=== PATIENT | male | born 1960 | race Caucasian/White ===

== ENCOUNTER 2020-07-12 09:25 | Outpatient (RCR) | payer OTHER, SELFPAY ==
[2020-07-12 09:43] VITALS: BMI 47.9
[2020-07-12 09:46] VITALS: BMI 47.9
== END 2020-09-26 15:19 | disposition home or self-care (01) ==
LOC: ANHDMC 09:25
PROVIDERS: PCP Internal Medicine; Visit Provider Internal Medicine
DX: E11.9 Type 2 diabetes mellitus without complications (principal); Z71.3 Dietary counseling and surveillance
CPT/HCPCS: 97802

== ENCOUNTER 2020-07-18 07:59 | Outpatient (CLI) | payer OTHER, SELFPAY | END 2020-07-18 08:00 | disposition home or self-care (01) | LOC: ANHCOVIDVC 07:59 | PROVIDERS: PCP Internal Medicine | DX: Z23 Encounter for immunization (principal) | CPT/HCPCS: 0001A; 91300 ==

== ENCOUNTER 2020-08-08 08:02 | Outpatient (CLI) | payer OTHER, SELFPAY | END 2020-08-08 08:03 | disposition home or self-care (01) | LOC: ANHCOVIDVC 08:02 | PROVIDERS: PCP Internal Medicine | DX: Z23 Encounter for immunization (principal) | CPT/HCPCS: 0002A; 91300 ==

== ENCOUNTER 2021-09-20 10:03 | Outpatient (CLI) | payer OTHER, SELFPAY ==
--- NOTE | ~2021-09-20 | CT_ITS ---
EXAMINATION: CT abdomen pelvis wo/w con DATE: 09/20/2021 10:59 INDICATION: Hematuria TECHNIQUE: Computed tomography (CT) of the abdomen and pelvis was performed without and subsequently with 130 CC Omnipaque 300 intravenous contrast. Automated exposure control and iterative reconstructi on technique were employed. Exam dose: 3092.28 mGy-cm total exam DLP. COMPARISON: None. FINDINGS: There is mild discoid atelectasis or scarring at the lung bases. No pericardial or pleural effusion. 12 mm probable cyst at the lateral segment of the left hepatic lobe. The liver is otherwise unremarka ble. The gallbladder is present. No bile duct or pancreatic duct dilatation. Normal splenic size. There are prominent calcifications of the head of the pancreas and small pancreatic tail calcificatio n. 6.5 x 8.7 mm left renal pelvic calculus or calculi. Mild left hydronephrosis. No other urinary tract calculus is noted. No right hydronephrosis. The urinary bladder is unremarkable. Minimal prostate calcification. No significant prostate enlargem ent is noted. There is mild atherosclerotic calcification of the abdominal aorta. No abdominal aortic aneurysm. No intraperitoneal or retroperitoneal or pelvic mass lesion or adenopathy or ascites. Diverticulosis of left and right colon; no CT evidence of diverticulitis. The appendix is not localiz ed; no inflammatory changes noted in the right lower quadrant. No bowel obstruction, bowel wall thick ening, pneumatosis or intraperitoneal free air is detected. Small fat-containing umbilical hernia. There is mild compression fracture deformity of L1 with prominent depression of the superior vertebra l endplate There is mild anterior wedge compression fracture deformity at T8. IMPRESSION: 6.5-8.7 mm left renal pelvic calculus or calculi with mild left hydronephrosis 12 mm left hepatic probable cyst Chronic pancreatitis Diverticulosis of left and right colon; no evidence of diverticulitis Mild compression fracture deformity of T8 and L1 Reviewed, dictated and finalized at [facility]. Reviewed, dictated and finalized at location B. IMPRESSION: 6.5-8.7 mm left renal pelvic calculus or calculi with mild left hy dronephrosis 12 mm left hepatic probable cyst Chronic pancreatitis Diverticulosis of left and right colon; no evidence of diverticulitis Mild compression fracture deformity of T8 and L1
[2021-09-20 10:46] LABS: Estimated Glomerular Filt Rate > 60
[2021-09-20 11:32] LABS: Basophils Percent Auto 0.5 % (0.2-1.2); Eosinophils Absolute Auto 0.2 K/mm3 (0-0.3); Hematocrit 43.4 % (42.0-52.0); Immature Granulocyte Absolute 0.08 K/mm3 (0.00-0.031); Lymphocytes Percent Auto 26.8 % (18.3-44.2); Mean Corpuscular HGB Conc 32.3 g/dl (32-36); Mean Corpuscular Hemoglobin 30.4 pg (26-34); Mean Corpuscular Volume 94.3 fl (80-100); Monocytes Absolute Auto 0.5 K/mm3 (0.1-0.6); Neutrophils Percent Auto 63.7 % (45.5-73.1); Platelet Count Result 235 k/mm3 (150-375); Red Cell Distribution Width 12.3 % (11.5-14.5); White Blood Count 7.8 K/mm3 (4.5-10.0)
[2021-09-20 11:46] LABS: Add Urine Microscopic? YES; Appearance Urine Other (Clear); Bilirubin Urine 1+ (Negative); Blood Urine 3+ (Negative); Color Urine Red (Yellow); Glucose Urine UA Negative (Negative); Ketones Urine Trace mg/dL (Negative); Leukocyte Esterase Ur Negative LEU/UL (Negative); Nitrate Urine Negative (Negative); Protein Urine 3+ mg/dL (Negative); Specific Grav Ur 1.025 (1.001-1.035); Urobilinogen Urine 0.2 mg/dL (<2.0); pH Urine 5.5 (5.0-9.0)
[2021-09-20 11:49] LABS: Mucus Urine Few /lpf; RBC Urine >75 /hpf (0-2); WBC Urine 0-3 /hpf
[2021-09-20 11:59] LABS: Alanine Aminotransferase 36 U/L (6-50); Albumin Level 4.5 g/dL (3.5-5.1); Alkaline Phosphatase 67 U/L (38-126); Anion Gap 8 mmol/L (8-16); Aspartate Amino Transferase 32 U/L (17-59); Bilirubin,Total 0.7 mg/dL (0.2-1.3); Blood Urea Nitrogen 12 mg/dL (9-20); Calcium 10.3 mg/dL (8.4-10.2); Carbon Dioxide 26 mmol/L (22-30); Chloride 103 mmol/L (98-107); Estimated Glomerular Filt Rate > 60; Glucose 125 mg/dL (65-110); Potassium 4.6 mmol/L (3.4-5.0); Sodium 137 mmol/L (137-145)
[2021-09-20 12:30] LABS: Prostate Specific Antigen 1.5 ng/mL (< OR = 4.0)
== END 2021-09-20 10:04 | disposition home or self-care (01) ==
PROVIDERS: PCP Internal Medicine; Visit Provider Clinical Nurse Specialist
DX: R31.9 Hematuria, unspecified (principal); Z12.5 Encounter for screening for malignant neoplasm of prostate; N20.0 Calculus of kidney; K76.89 Other specified diseases of liver; K86.1 Other chronic pancreatitis; K57.90 Diverticulosis of intestine, part unspecified, without perforation or abscess without bleeding; M48.54XA Collapsed vertebra, not elsewhere classified, thoracic region, initial encounter for fracture
CPT/HCPCS: 74178; 80053; 81001; 84153; 85025; G0103; Q9967

== ENCOUNTER 2021-09-21 07:58 | Outpatient (CLI) | payer OTHER, SELFPAY ==
--- NOTE | ~2021-09-21 | XR_ITS ---
EXAMINATION: XR abdomen/kub 1V INDICATION: Calcium kidney stone TECHNIQUE: Supine views of the abdomen were obtained on 2 radiographs. COMPARISON: CT from yesterday FINDINGS: A 7 mm stone projects in the expected location of the left ureteropelvic junction between t he left L1 and L2 transverse processes. No additional urolithiasis is identified. There are phlebolit hs of the right pelvis. Moderate osteoarthritis is noted in the hips the bowel gas pattern is normal. Calcifications of the right mid abdomen projects in the pancreas on the comparison CT, consistent wi th chronic pancreatitis. IMPRESSION: 1. 7 mm stone projecting in the expected location of the left ureteropelvic junction. Reviewed, dictated and finalized at location A. IMPRESSION: 1. 7 mm stone projecting in the expected location of the left ureteropelvic okki ction.
== END 2021-09-21 07:59 | disposition home or self-care (01) ==
PROVIDERS: PCP Internal Medicine; Visit Provider Urology
DX: N20.0 Calculus of kidney (principal); M16.0 Bilateral primary osteoarthritis of hip
CPT/HCPCS: 74018

== ENCOUNTER 2021-09-23 13:30 | Observation (INO) | payer OTHER, SELFPAY ==
[2021-09-23] VITALS (7 sets, daily range): BP systolic 120–150; BP diastolic 73–98; PULSE 71–94; RESP 2–20; TEMP 36.3–36.4; O2SAT 95–99; BMI 45.8
--- NOTE | ~2021-09-23 | CT_ITS ---
EXAMINATION: CT abdomen pelvis wo con DATE: 09/23/2021 14:43 INDICATION: left flank pain TECHNIQUE: Computed tomography (CT) of the abdomen and pelvis was performed without intravenous contr ast. Automated exposure control and iterative reconstruction technique were employed. The dose-length product was 1526.38 mGy-cm. COMPARISON: 09/20/2021 FINDINGS: Lower thorax: Bibasilar atelectasis/scar. Mild coronary artery calcification. Liver: Stable probable left liver lobe cyst. Biliary/Gallbladder: Gallbladder is normal. No bile duct dilation. Pancreas: No mass or duct dilation. Calcifications as can be seen with chronic pancreatitis. Spleen: Normal. Adrenals:No mass. Kidneys: Moderate left perinephric stranding and pelvic caliectasis. 5 x 12 mm left UPJ stone (unchan ged the prior, differences in measurement reflect different selected measurement planes). GI tract: Diverticulosis without diverticulitis. No bowel dilation. Normal appendix. Mesentery/Peritoneum: No ascites, mass, or free air. Retroperitoneum: No mass. Mild abdominal aortic atherosclerosis. Pelvis: Prostatomegaly, otherwise the pelvic organs are within normal limits. Soft Tissues: Soft tissues and body wall unremarkable. Bones: No acute osseous finding. IMPRESSION: 5 x 12 mm left UPJ stone causing moderate obstructive uropathy, overall the obstruction/inflammation have worsened since the prior study. Reviewed, dictated and finalized at location K. IMPRESSION: 5 x 12 mm left UPJ stone causing moderate obstructive uropathy, overall the obs truction/inflammation have worsened since the prior study.
--- NOTE | ~2021-09-23 | XR_ITS ---
EXAMINATION: XR retrograde pyelo w/stent LT DATE: 09/24/2021 10:00 CDT INDICATION: LT SIDE SPECIAL . TECHNIQUE: Five fluoroscopic spot and 77 cine images of the pelvis and left upper quadrant were obtai jan during this procedure. Fluoroscopy exposure time was 34.3 seconds. Cumulative dose 1.28 mGm2. COMPARISON: CT abdomen/pelvis 09/23/21. FINDINGS: Spot views document normal bowel gas pattern. Extra ureteral right pelvic calcification. The left UPJ stone seen in the prior study is not well visualized and may have been removed or passed in the inte rval. Cine images demonstrate filling of the proximal collecting system which is mildly to moderately dilated, perhaps slightly less so than the prior CT. IMPRESSION: Fluoroscopic documentation of retrograde pyelography. Reviewed, dictated and finalized at location K.
--- NOTE | 2021-09-23 13:50 | ED.MALEGU ---
HPI - Male Genitourinary General Chief complaint: Urogenital-Male Stated complaint: known kidney stone, pain Time Seen by Provider: 09/23/21 13:45 History of Present Illness HPI Narrative: pt started last week hematuria then outpt last left flank pain saw his doc ct adn stone sent to dr méndez and xray and plan for stent this coming . and blood in urine is gone but then more nausea pain no d/f/neuor changes but taking norco and not helping Related Data Home Medications Medication Instructions Recorded Confirmed atorvastatin 40 mg tablet 40 mg PO DAILY 11/18/19 09/22/21 metoprolol succinate 50 mg 50 mg PO QAM tablet 11/18/19 09/22/21 tablet,extended release 24 hr propafenone 325 mg 325 mg PO Q12H 11/18/19 09/22/21 capsule,extended release 12 hr rivaroxaban 20 mg tablet 20 mg PO QPM 11/18/19 09/22/21 cholecalciferol (vitamin D3) 50 2,000 unit PO DAILY cap 04/19/20 09/22/21 mcg (2,000 unit) capsule acetaminophen [Tylenol Extra 1,500 mg PO Q6H PRN 09/22/21 09/22/21 Strength] Allergies Allergy/AdvReac Type Severity Reaction Status Date / Time No Known Allergies Allergy Unknown Verified 09/23/21 14:15 Review of Systems Review of Systems: CONSTITUTIONAL: Denies fever, chills, or sweats. EYES: Denies visual changes, redness, or discharge. ENT: Denies rhinorrhea, congestion, sore throat, or otalgia. CARDIOVASCULAR: Denies chest pain, palpitations, or edema. RESPIRATORY: Denies cough or dyspnea. GASTROINTESTINAL: Denies abdominal pain, nausea, vomiting, or diarrhea. GENITOURINARY: Denies dysuria or has hematuria and left flank pain. SKIN: Denies rash or itching. MUSCULOSKELETAL: Denies back pain, joint pain, or myalgia. NEUROLOGIC: Denies headache, numbness, or weakness. PSYCHIATRIC: Denies anxiety or depression. [facility] Past Medical History Medical History Atrial fibrillation Continuous tobacco abuse Essential hypertension Eustachian tube dysfunction FHH (familial hypocalciuric hypercalcemia) History of cardioversion 2009, 2010, 2012 Hypercholesterolemia Hyperglycemia Hypertension Morbid obesity due to excess calories Vitamin D deficiency Family History Family History Sibling Diabetes mellitus Patient's brother is in good health Mother Hypertension Family history of atrial fibrillation Father Malignant neoplasm of prostate Social History Social History Smoking packs per day: 1 Smoking cigarettes per day: 20.0 Years smoked: 35 Smoking pack-years: 35.00 Smoking status: Current every day smoker Tobacco type: cigarettes Smoking end date: 05/13/10 Additional smoking assessment comments: CURRENTLY SMOKING 1/2 PACK/DAY Alcohol intake: current Alcohol use details: whiskey once a month or so Substance use: never Substance use type: marijuana and hallucinogens Last use: 15 years ago Additional living arrangements comments: 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 Head normocephalic atraumtaic. EYES: PERRLA/EOMI, conjunctivae very clear. NOSE: Normal no drainage EARS:TMS clear Sam Jerez, with good light reflex. THROAT: Pharynx clear, no exudate. NECK: Supple. No adenopathy, no masses. RESPIRATORY: Airway patent, repsirations nonlabored. Clear to auscultation bilaterally, no rales, rhonchi, wheezing. CARDIOVASCULAR: Regular rate and rhythm without murmurs rubs or gallops. ABDOMINAL: Soft, nontender, nondistended, no hepatosplenomegally has left cva tenderness MUSCULOSKELETAl: Moves all extremities. Strenght/ROM intact, No edema, No calf tenderness. NEURO: Alert. Cranial nerves II through XII intact. Good gait. Good coordination SKIN:: Warm, dry. Nor
[2021-09-23] MEDS: SODIUM CHLORIDE 0.9% IV 1,000 ML 999 ML IV CONT (14:22)
[2021-09-23] MEDS: ONDANSETRON INJ 4 MG/2 ML VIAL IV PUSH (14:26)
[2021-09-23] MEDS: KETOROLAC 30 MG/ML VIAL (*BKC) IV PUSH (14:28)
[2021-09-23 14:30] LABS: Basophils Percent Auto 0.2 % (0.2-1.2); Eosinophils Percent Auto 0.2 % (0-4.4); Hematocrit 41.7 % (42.0-52.0); Hemoglobin 13.4 g/dL (14.0-18.0); Immature Granulocyte Percent A 0.8 % (0-0.5); Lymphocytes Absolute Auto 1.31 K/mm3 (0.9-3.2); Lymphocytes Percent Auto 10.7 % (18.3-44.2); Mean Corpuscular HGB Conc 32.1 g/dl (32-36); Mean Corpuscular Volume 93.5 fl (80-100); Mean Platelet Volume 10.9 fl (7.4-10.4); Monocytes Percent Auto 7.8 % (2.6-8.5); Neutrophils Absolute Auto 9.8 K/mm3 (1.3-6.7); Neutrophils Percent Auto 80.3 % (45.5-73.1); Platelet Count Result 248 k/mm3 (150-375); Red Blood Count 4.46 M/mm3 (4.6-6.20); Red Cell Distribution Width 12.4 % (11.5-14.5); White Blood Count 12.2 K/mm3 (4.5-10.0)
[2021-09-23] MEDS: fentaNYL CITRATE INJ (*CRX) 100 MCG/2 ML VIAL IV PUSH (14:30)
[2021-09-23 14:39] LABS: Alanine Aminotransferase 26 U/L (6-50); Albumin Level 4.8 g/dL (3.5-5.1); Alkaline Phosphatase 72 U/L (38-126); Anion Gap 10 mmol/L (8-16); Aspartate Amino Transferase 24 U/L (17-59); Blood Urea Nitrogen 19 mg/dL (9-20); Calcium 10.4 mg/dL (8.4-10.2); Carbon Dioxide 21 mmol/L (22-30); Chloride 104 mmol/L (98-107); Estimated CRCL calculation 102 ml/min; Estimated Glomerular Filt Rate > 60; Glucose 149 mg/dL (65-110); Potassium 4.3 mmol/L (3.4-5.0); Sodium 135 mmol/L (137-145)
[2021-09-23 16:04] LABS: Add Urine Microscopic? YES; Appearance Urine Cloudy (Clear); Bilirubin Urine 1+ (Negative); Blood Urine 1+ (Negative); Color Urine Yellow (Yellow); Glucose Urine UA Negative (Negative); Ketones Urine 1+ mg/dL (Negative); Leukocyte Esterase Ur Negative LEU/UL (Negative); Nitrate Urine Negative (Negative); Protein Urine 1+ mg/dL (Negative); Specific Grav Ur >= 1.030 (1.001-1.035); Urobilinogen Urine 0.2 mg/dL (<2.0); pH Urine 5.5 (5.0-9.0)
[2021-09-23 16:21] LABS: Mucus Urine Rare /lpf
[2021-09-23 17:20] LABS: Glucose Point of Care 136 mg/dl (65-105)
--- NOTE | 2021-09-23 18:15 | PM.IMHP ---
H&P: HPI History of Present Illness Date/Time: 09/23/21 18:15 Chief Complaint: Left flank pain. Narrative: This is a pleasant 61-year-old male with persistent atrial fibrillation on chronic anticoagulation, prediabetes, obstructive sleep apnea, hyperlipidemia, and hypertension who presented to the emergency department for evaluation of worsening left flank pain. A CT of the abdomen and pelvis done earlier in the week for evaluation of hematuria revealed an 8.7 x 6.5 mm stone in the left renal pelvis with mild left hydronephrosis. He was referred to Urology and is scheduled for cystoscopy with stent placement this coming Saturday. Unfortunately he has since developed left back and flank pain which has been pretty consistent over the past 24 hours. Last night the pain was so severe that he was nauseated and he had several episodes of emesis associated with sweats. He was afebrile on arrival to the emergency department with stable vital signs. CT of the abdomen and pelvis showed a 5 x 12 mm left UPJ stone causing moderate obstructive uropathy and he is being admitted in this setting. Currently he is much more comfortable after receiving fentanyl and ketorolac in the emergency department. He denies fever, dysuria, and hematuria. Review of Systems Review of Systems: Twelve systems were reviewed. This is 1st kidney stone. Familial hypercalciuric hypercalcemia documented in his medical history however he has no knowledge of this. No cold or flu symptoms. He denies chest pain and shortness of breath. No diarrhea. He is prediabetic but does not check his glucose at home. He is compliant with his CPAP. Except as documented, all other systems were reviewed and are negative. [facility] Past Medical History Medical History (Updated 09/23/21 @ 20:47 by Kimmy Rothman PA-C) Chronic anticoagulation Continuous tobacco abuse Essential hypertension Gastroesophageal reflux disease Hypercholesterolemia Hypertension Morbid obesity due to excess calories Obstructive sleep apnea on CPAP Obstructive uropathy Paroxysmal atrial fibrillation Status post cardioversion x3. Type 2 diabetes mellitus Vitamin D deficiency Surgical History Surgical History History of appendectomy History of cardioversion 2009, 2010, 2011 History of vasectomy Family History Family History Sibling Diabetes mellitus Patient's brother is in good health Mother Hypertension Family history of atrial fibrillation Father Malignant neoplasm of prostate Social History Social History (Updated 09/23/21 @ 20:48 by Kimmy Rothman PA-C) Social History: Surrogate decision maker: Nicole Maria, spouse. Code status: Full code. Smoking packs per day: 1 Smoking cigarettes per day: 20.0 Years smoked: 35 Smoking pack-years: 35.00 Smoking status: Current every day smoker Tobacco type: cigarettes Second hand tobacco smoke exposure: No Additional smoking assessment comments: Quit smoking for 10 years, now smoking 0.5 packs a day for the past 1 year Alcohol intake: current Alcohol use details: Consumes perhaps 2 to 3 alcoholic beverages a week. 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
--- NOTE | 2021-09-23 19:47 | WPDANESEPP ---
Anes - Eval Pre Procedure Procedure: left cysto with stent exchange Date/Time: 09/23/21 19:47 Surgeon: bernard Pre Op Diagnosis: Obstructing kidney stone left side Patient Data Age: 61 Gender: M Height: 1.8 m Weight: 149 kg Last Vital Signs Temp 97.3 F L 09/23/21 17:41 Pulse 81 09/23/21 17:41 Resp 2 L 09/23/21 17:41 BP 138/76 09/23/21 17:41 Pulse Ox 97 09/23/21 17:41 Allergies Allergy/AdvReac Type Severity Reaction Status Date / Time No Known Allergies Allergy Unknown Verified 09/23/21 14:15 Home Medications Medication Instructions Recorded Confirmed Type atorvastatin 40 mg tablet 40 mg PO DAILY 11/18/19 09/23/21 History metoprolol succinate 50 mg 50 mg PO QAM tablet 11/18/19 09/23/21 History tablet,extended release 24 hr propafenone 325 mg 325 mg PO Q12H 11/18/19 09/23/21 History capsule,extended release 12 hr rivaroxaban 20 mg tablet 20 mg PO QPM 11/18/19 09/23/21 History cholecalciferol (vitamin D3) 50 2,000 unit PO DAILY cap 04/19/20 09/23/21 History mcg (2,000 unit) capsule metformin 1,000 mg tablet 1,000 mg PO BID #180 tablet 04/25/21 09/23/21 Rx acetaminophen [Tylenol Extra 1,500 mg PO DAILY PRN 09/22/21 09/23/21 History Strength] Laboratory Tests 09/23/21 09/23/21 09/23/21 13:54 13:54 13:54 WBC 12.2 K/mm3 H K/mm3 (4.5-10.0) RBC 4.46 M/mm3 L M/mm3 (4.6-6.20) Hgb 13.4 g/dL L g/dL (14.0-18.0) Hct 41.7 % L % (42.0-52.0) MCV 93.5 fl fl (80-100) MCH 30.0 pg pg (26-34) MCHC 32.1 g/dl g/dl (32-36) RDW 12.4 % % (11.5-14.5) Plt Count 248 k/mm3 k/mm3 (150-375) MPV 10.9 fl H fl (7.4-10.4) Immature Gran % (Auto) 0.8 % H % (0-0.5) Neut % (Auto) 80.3 % H % (45.5-73.1) Lymph % (Auto) 10.7 % L % (18.3-44.2) [place] % (Auto) 7.8 % % (2.6-8.5) Eos % (Auto) 0.2 % % (0-4.4) Baso % (Auto) 0.2 % % (0.2-1.2) Lymph # (Auto) 1.31 K/mm3 K/mm3 (0.9-3.2) [place] # (Auto) 1.0 K/mm3 H K/mm3 (0.1-0.6) Eos # (Auto) 0.0 K/mm3 K/mm3 (0-0.3) Baso # (Auto) 0.0 K/mm3 K/mm3 (0.0-0.1) Abs Immat Gran (auto) 0.10 K/mm3 H K/mm3 (0.00-0.031) Absolute Neuts (auto) 9.8 K/mm3 H K/mm3 (1.3-6.7) Absolute Nucleated RBC 0.0 K/mm3 K/mm3 (0.0-0.012) Nucleated RBC % 0.0 % % (0.0-0.2) Sodium 135 mmol/L L mmol/L (137-145) Potassium 4.3 mmol/L mmol/L (3.4-5.0) Chloride 104 mmol/L mmol/L (98-107) Carbon Dioxide 21 mmol/L L mmol/L (22-30) Anion Gap 10 mmol/L mmol/L (8-16) BUN 19 mg/dL mg/dL (9-20) Creatinine 1.00 mg/dL mg/dL (0.7-1.3) Estim Creat Clear Calc 102 ml/min ml/min Estimated GFR > 60 (59 - ) Glucose 149 mg/dL H mg/dL (65-110) POC Capillary Glucose Calcium 10.4 mg/dL H mg/dL (8.4-10.2) Total Bilirubin 1.0 mg/dL mg/dL (0.2-1.3) AST 24 U/L U/L (17-59) ALT 26 U/L U/L (6-50) Alkaline Phosphatase 72 U/L U/L (38-126) Total Protein 8.0 g/dL g/dL (6.3-8.2) Albumin 4.8 g/dL g/dL (3.5-5.1) Urine Color Yellow (Yellow) Urine Appearance Cloudy H (Clear) Urine pH 5.5 (5.0-9.0) Ur Specific [place] >= 1.030 (1.001-1.035) Urine Protein 1+ mg/dL H mg/dL (Negative) Urine Glucose (UA) Negative mg/dL mg/dL (Negative) Urine Ketones 1+ mg/dL H mg/dL (Negative) Ur Blood (Man) 1+ H (Negative) Urine Nitrate Negative (Negative) Urine Bilirubin 1+ H (Negative) Urine Urobilinogen 0.2 mg/dL mg/dL (<2.0) Leukocyte Esterase Rfl Negative AKBAR/UL AKBAR/UL (Negative) Urine RBC 3-5 /hpf H /hpf (0-2) Uri
--- NOTE | 2021-09-23 19:51 | ECG_ITS ---
Measurements Intervals [place] Rate: 67 P: DE: 0 QRS: 10 QRSD: 100 T: 22 QT: 343 QTc: 365 Interpretive Statements ATRIAL FIBRILLATION LOW QRS VOLTAGE IN PRECORDIAL LEADS MINIMAL Q WAVES- INFERIOR LEADS BORDERLINE T WAVE ABNORMALITY- INFERIOR LEADS BASELINE ARTIFACT- I, II, III, AVR, AVL, AVF ABNORMAL ECG Electronically Signed On 09-23-2021 20:43:28 CDT by Paul Bishop D.O.
[2021-09-23] MEDS: HYDROcodone/acetaminophen (*CRX) 5-325 MG TABLET 1 TAB PO (21:42)
[2021-09-23 21:45] LABS: Glucose Point of Care 132 mg/dl (65-105)
[2021-09-24] VITALS (13 sets, daily range): BP systolic 118–137; BP diastolic 73–89; PULSE 80–96; RESP 13–26; TEMP 36.2–36.8; O2SAT 92–98
[2021-09-24] MEDS: MORPHINE SULFATE (*CRX) 2 MG/ML INJ IV PUSH ×2 (02:30→12:08)
--- NOTE | 2021-09-24 04:03 | PHAR ---
PHARMACY VERIFIED HOME MED: *USE FROM HOME* PROPAFENONE HCL SR 325 MG CAPSULE TAKE 1 CAPSULE BY MOUTH ONCE DAILY IF HEART RATE < 50 HOLD AND NOTIFY PHYSICIAN
[2021-09-24 07:08] LABS: Hematocrit 38.7 % (42.0-52.0); Hemoglobin 12.6 g/dL (14.0-18.0); Mean Corpuscular HGB Conc 32.6 g/dl (32-36); Mean Corpuscular Hemoglobin 30.5 pg (26-34); Mean Corpuscular Volume 93.7 fl (80-100); Mean Platelet Volume 11.4 fl (7.4-10.4); Platelet Count Result 216 k/mm3 (150-375); Red Blood Count 4.13 M/mm3 (4.6-6.20); Red Cell Distribution Width 12.3 % (11.5-14.5)
[2021-09-24 07:34] LABS: Anion Gap 11 mmol/L (8-16); Blood Urea Nitrogen 22 mg/dL (9-20); Calcium 9.8 mg/dL (8.4-10.2); Carbon Dioxide 20 mmol/L (22-30); Chloride 105 mmol/L (98-107); Estimated CRCL calculation 86 ml/min; Estimated Glomerular Filt Rate > 60; Glucose 141 mg/dL (65-110); Potassium 4.2 mmol/L (3.4-5.0); Sodium 136 mmol/L (137-145)
--- NOTE | 2021-09-24 07:40 | WPDURCON ---
Assessment and Plan Assessment and plan (1) Obstruction of left ureteropelvic junction due to stone: Code(s): N20.1 - Calculus of ureter Status: Acute Assessment and Plan: he will undergo cystoscopy with left ureteral stent placement. He understands I will not be removing the stone today. He set for definitive stone management on Saturday. He can likely discharge home after the procedure and keep that scheduled follow-up. He understands risks of bleeding, infection, damage to the urinary tract, inability to place the stent. He agrees to proceed (2) Hydronephrosis of left kidney: Code(s): N13.30 - Unspecified hydronephrosis Status: Acute Urology Consult Note HPI Date Seen: 09/24/21 Requesting Physician: DRISS Cee Primary Care Provider: Abdias Gama DO Consult Narrative Narrative: David Maria is a 61 year old male Seen at the request the hospitalist. He was seen by my partner Dr. Renee last week. He was diagnosed with a large left ureteropelvic junction stone. He was set to have intervention on Saturday for this stone. He continued to have nausea and vomiting and significant pain. He re-presented to the emergency room and was admitted for a ureteral stone failing outpatient management. He appears somewhat more comfortable now. He notes nausea and vomiting yesterday. His pain is well controlled after IV pain medication. He will undergo stent placement today with anticipation of definitive stone management as scheduled next week. Review of Systems Review of Systems: All systems reviewed & are unremarkable except as noted in HPI and below PMFSH Past Medical History Medical History Chronic anticoagulation Continuous tobacco abuse Essential hypertension Gastroesophageal reflux disease Hypercholesterolemia Hypertension Morbid obesity due to excess calories Obstructive sleep apnea on CPAP Obstructive uropathy Paroxysmal atrial fibrillation Status post cardioversion x3. Type 2 diabetes mellitus Vitamin D deficiency Surgical History Surgical History History of appendectomy History of cardioversion 2009, 2010, 2012 History of vasectomy Family History Family History Sibling Diabetes mellitus Patient's brother is in good health Mother Hypertension Family history of atrial fibrillation Father Malignant neoplasm of prostate Social History Social History Social History: Surrogate decision maker: Nicole Maria, spouse. Code status: Full code. Smoking packs per day: 1 Smoking cigarettes per day: 20.0 Years smoked: 35 Smoking pack-years: 35.00 Smoking status: Current every day smoker Tobacco type: cigarettes Second hand tobacco smoke exposure: No Additional smoking assessment comments: Quit smoking for 10 years, now smoking 0.5 packs a day for the past 1 year Alcohol intake: current Alcohol use details: Consumes perhaps 2 to 3 alcoholic beverages a week. 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 #180 tablet 04/25/21 09/23/21 Rx acetaminophen
[2021-09-24] MEDS: METOPROLOL SUCCINATE EXT REL 50 MG TABCR PO (07:44)
[2021-09-24] MEDS: ATORVASTATIN 40 MG TABLET PO (07:44)
[2021-09-24] MEDS: CHOLECALCIFEROL 1,000 UNITS TABLET 2000 UNITS PO (07:44)
--- NOTE | 2021-09-24 07:45 | WPDHPUPDATE1 ---
History and Physical Update Update Date/Time: 09/24/21 07:45 History and Physical has been reviewed, including an updated exam of the patient. There are NO changes in the patient's condition. Risks, benefits, and alternatives have been discussed and questions answered. Patient agrees to proceed with procedure.
[2021-09-24] MEDS: HYDROcodone/acetaminophen (*CRX) 5-325 MG TABLET 1 TAB PO ×2 (07:48→22:45)
[2021-09-24 07:55] LABS: Glucose Point of Care 150 mg/dl (65-105)
[2021-09-24] MEDS: LACTATED RINGERS 1,000 ML 30 ML IV CONT (09:50)
--- NOTE | 2021-09-24 09:57 | WPDANESEPPF ---
Anes - Initial Pre Proc Eval Procedure: Operation Date: 09/24/21 10:30 Proposed Procedures p Cysto, RPG, Stone Ext, Stent Placement(Left) - Sanya Portillo MD Date/Time: 09/24/21 09:57 Surgeon: DRISS Cee Pre Op Diagnosis: Obstructing kidney stone left side Patient Data Age: 61 Gender: M Height: 1.8 m Weight: 146 kg Last Vital Signs Temp 36.6 C 09/24/21 04:57 Pulse 82 09/24/21 04:57 Resp 16 09/24/21 04:57 BP 118/75 09/24/21 04:57 Pulse Ox 96 09/24/21 04:57 Allergies Allergy/AdvReac Type Severity Reaction Status Date / Time No Known Allergies Allergy Unknown Verified 09/23/21 14:15 Home Medications Medication Instructions Recorded Confirmed Type atorvastatin 40 mg tablet 40 mg PO DAILY 11/18/19 09/23/21 History metoprolol succinate 50 mg 50 mg PO QAM tablet 11/18/19 09/23/21 History tablet,extended release 24 hr propafenone 325 mg 325 mg PO Q12H 11/18/19 09/23/21 History capsule,extended release 12 hr rivaroxaban 20 mg tablet 20 mg PO QPM 11/18/19 09/23/21 History cholecalciferol (vitamin D3) 50 2,000 unit PO DAILY cap 04/19/20 09/23/21 History mcg (2,000 unit) capsule metformin 1,000 mg tablet 1,000 mg PO BID #180 tablet 04/25/21 09/23/21 Rx acetaminophen [Tylenol Extra 1,500 mg PO DAILY 09/22/21 09/23/21 History Strength] Laboratory Tests 09/23/21 09/23/21 09/23/21 13:54 13:54 13:54 WBC 12.2 K/mm3 H K/mm3 (4.5-10.0) RBC 4.46 M/mm3 L M/mm3 (4.6-6.20) Hgb 13.4 g/dL L g/dL (14.0-18.0) Hct 41.7 % L % (42.0-52.0) MCV 93.5 fl fl (80-100) MCH 30.0 pg pg (26-34) MCHC 32.1 g/dl g/dl (32-36) RDW 12.4 % % (11.5-14.5) Plt Count 248 k/mm3 k/mm3 (150-375) MPV 10.9 fl H fl (7.4-10.4) Immature Gran % (Auto) 0.8 % H % (0-0.5) Neut % (Auto) 80.3 % H % (45.5-73.1) Lymph % (Auto) 10.7 % L % (18.3-44.2) [place] % (Auto) 7.8 % % (2.6-8.5) Eos % (Auto) 0.2 % % (0-4.4) Baso % (Auto) 0.2 % % (0.2-1.2) Lymph # (Auto) 1.31 K/mm3 K/mm3 (0.9-3.2) [place] # (Auto) 1.0 K/mm3 H K/mm3 (0.1-0.6) Eos # (Auto) 0.0 K/mm3 K/mm3 (0-0.3) Baso # (Auto) 0.0 K/mm3 K/mm3 (0.0-0.1) Abs Immat Gran (auto) 0.10 K/mm3 H K/mm3 (0.00-0.031) Absolute Neuts (auto) 9.8 K/mm3 H K/mm3 (1.3-6.7) Absolute Nucleated RBC 0.0 K/mm3 K/mm3 (0.0-0.012) Nucleated RBC % 0.0 % % (0.0-0.2) Sodium 135 mmol/L L mmol/L (137-145) Potassium 4.3 mmol/L mmol/L (3.4-5.0) Chloride 104 mmol/L mmol/L (98-107) Carbon Dioxide 21 mmol/L L mmol/L (22-30) Anion Gap 10 mmol/L mmol/L (8-16) BUN 19 mg/dL mg/dL (9-20) Creatinine 1.00 mg/dL mg/dL (0.7-1.3) Estim Creat Clear Calc 102 ml/min ml/min Estimated GFR > 60 (59 - ) Glucose 149 mg/dL H mg/dL (65-110) POC Capillary Glucose Calcium 10.4 mg/dL H mg/dL (8.4-10.2) Magnesium Total Bilirubin 1.0 mg/dL mg/dL (0.2-1.3) AST 24 U/L U/L (17-59) ALT 26 U/L U/L (6-50) Alkaline Phosphatase 72 U/L U/L (38-126) Total Protein 8.0 g/dL g/dL (6.3-8.2) Albumin 4.8 g/dL g/dL (3.5-5.1) Urine Color Yellow (Yellow) Urine Appearance Cloudy H (Clear) Urine pH 5.5 (5.0-9.0) Ur Specific [place] >= 1.030 (1.001-1.035) Urine Protein 1+ mg/dL H mg/dL (Negative) Urine Glucose (UA) Negative mg/dL mg/dL (Negative) Urine Ketones 1+ mg/dL H mg/dL (Negative) Ur Blood (Man) 1+ H (Negative) Urine Nitrate Negative (Negative) Urine Bilirubin 1+ H (Negative) Urine Urobilinogen 0.2 mg/dL m
[2021-09-24] MEDS: LIDOCAINE HCL 2% GEL UROJET 10 ML PKG MUCOUS MEM (10:15)
--- NOTE | 2021-09-24 10:24 | W.PM.PROC2 ---
Procedure Note - Detailed Date of Procedure 09/24/21 Pre-op Diagnosis Obstructing kidney stone left side Post-op Diagnosis Same Procedure Performed Cystoscopy, left retrograde pyelogram, left stent placement Surgeon Sanya Portillo MD Anesthesia General Indications This is a gentleman with a large UPJ stone. He is here today for ureteral stent. He has definitive stone procedure scheduled next week he understands the risks of bleeding, infection, damage to the urinary tract, inability to place the stent. He agrees to proceed Findings UPJ stone. Stent placed Description of Procedure His correctly identified. Informed consent obtained. From the operating room. He was given general anesthesia. He was prepped and draped in a sterile fashion. He was on appropriate antibiotics. A time-out performed. Cystoscopy revealed normal-appearing bladder. He had lxhy-tq-temdxaxr trabeculations. There is no stone or tumor. I did retrograde pyelogram on the left. The stone was seen at the UPJ. There was hydronephrosis proximal to the stone. A guidewire was placed in the kidney. A 4.8 x 28 stent was placed. Proximal coil in the lower pole kidney. Distal coil in the bladder. The bladder was drained. Uro jet was applied. He was taken the PACU in stable condition. Implants Ureteral stent Estimated Blood Loss 1 Drains Yes (Ureteral stent) Packing No Pathology None sent Complications No immediate complications Condition Stable Disposition PACU
[2021-09-24 11:25] LABS: Glucose Point of Care 136 mg/dl (65-105)
[2021-09-24 12:04] LABS: Glucose Point of Care 170 mg/dl (65-105)
--- NOTE | 2021-09-24 14:39 | PM.IMPN ---
Progress Note: A&P Assessment and Plan (1) Obstruction of left ureteropelvic junction due to stone: Code(s): N20.1 - Calculus of ureter Status: Acute Assessment and Plan: - Stent placed today. - Pt. to have stone removal on Saturday. - Control pain - Monitor CBC secondary to the continued bleeding post procedure. - Strain all urine. - IVF of NS at 100 ml/hr. - Monitor labs and vitals. - Hold tonight's Xarelto secondary to the procedure and bleeding. May restart it in AM after assessment. (2) Obstructive uropathy: Code(s): N13.9 - Obstructive and reflux uropathy, unspecified Status: Acute Assessment and Plan: - As noted above in Problem #1. 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 (4) Paroxysmal atrial fibrillation: Code(s): I48.0 - Paroxysmal atrial fibrillation Status: Acute Assessment and Plan: - Holding dose of Xarelto tonight secondary to the amount of bleeding he is having post stent placement. - Can resume Xarelto tomorrow. - SCD's ordered. (5) Chronic anticoagulation: Code(s): Z79.01 - equipment operator intermodal yard (current) use of anticoagulants Status: Acute Assessment and Plan: - See plan of care above for PAF (6) Obstructive sleep apnea on CPAP: Code(s): G47.33 - Obstructive sleep apnea (adult) (pediatric); Z99.89 - Dependence on other enabling machines and devices Status: Acute Assessment and Plan: - Continue to use CPAP. (7) Essential hypertension: Code(s): I10 - Essential (primary) hypertension Status: Acute Assessment and Plan: - Continue home BP meds of Metoprolol Succinate 50 mg QAM - Monitor BP with vitals. Time Spent With Patient Time with patient: 15 - 25 minutes Subjective Date/time seen: 09/24/21 This 61 year old male patient was examined at the bedside today in interval assessment. He presented to the ER with acute left flank pain and nausea that had worsened since being diagnosed with a large renal stone earlier this week. He had surgical intervention scheduled for two days from now on Saturday. However, his pain just became too bad and therefore he came to the hospital. As a result, Dr. Portillo took him to the OR today to place the stent that extends from the lower pole of the kidney to the bladder. Since the procedure today, the pt. has been having continued bleeding from his catheter and he has had some pain requiring Morphine. Due to continued monitoring, he will be kept overnight to also trend CBC. He has no CP, dyspnea, N/V/D. Review of Systems Review of Systems: All systems reviewed & are unremarkable except as noted in HPI and below Exam Const: General: in distress and uncomfortable Other: Secondary to pain in the the urethra. HENMT: Mouth: Yes moist mucous membranes Eyes: Sclera: sclerae normal Neck: Neck: supple and no JVD Lymphatic: lymphadenopathy not noted Resp: Effort & Inspection: normal respiratory effort Auscultation: clear to auscultation bilaterally Cardio: Rate: regular rate, not bradycardic and not tachycardic Rhythm: regular rhythm and regular rhythm Heart sounds: no gallops, no murmurs and no rubs GI: GI Palp: Yes Soft to palpation and No Tenderness to palpation present (GI) Auscultation: normal bowel sounds Urinary Catheter: Urinary Catheter: patent and draining and urine red Skin: General skin exam: normal color and no rashes or lesions noted Neuro: General: gait normal and deep tendon reflexes 2+ bilaterally Speech: normal speech Motor exam (neuro): 5/5 motor strength present throughout, Normal motor muscle tone present throughout, Abnormal motor
[2021-09-24] MEDS: SODIUM CHLORIDE 0.9% IV 1,000 ML 100 ML IV CONT (14:45)
[2021-09-24 16:17] LABS: Glucose Point of Care 172 mg/dl (65-105)
[2021-09-24] MEDS: metFORMIN HCL 500 MG TABLET 1000 MG PO (17:42)
[2021-09-24 20:12] LABS: Glucose Point of Care 170 mg/dl (65-105)
[2021-09-25] MEDS: SODIUM CHLORIDE 0.9% IV 1,000 ML 100 ML IV CONT (00:47)
[2021-09-25 02:21] VITALS: PULSE 88; O2SAT 96
[2021-09-25 06:09] LABS: Basophils Percent Auto 0.2 % (0.2-1.2); Eosinophils Percent Auto 0.1 % (0-4.4); Hematocrit 35.3 % (42.0-52.0); Hemoglobin 11.3 g/dL (14.0-18.0); Immature Granulocyte Absolute 0.05 K/mm3 (0.00-0.031); Immature Granulocyte Percent A 0.6 % (0-0.5); Lymphocytes Absolute Auto 1.39 K/mm3 (0.9-3.2); Lymphocytes Percent Auto 15.6 % (18.3-44.2); Mean Corpuscular Hemoglobin 30.3 pg (26-34); Mean Corpuscular Volume 94.6 fl (80-100); Mean Platelet Volume 10.9 fl (7.4-10.4); Monocytes Absolute Auto 0.8 K/mm3 (0.1-0.6); Monocytes Percent Auto 8.5 % (2.6-8.5); Neutrophils Absolute Auto 6.7 K/mm3 (1.3-6.7); Platelet Count Result 212 k/mm3 (150-375); Red Blood Count 3.73 M/mm3 (4.6-6.20); Red Cell Distribution Width 12.3 % (11.5-14.5); White Blood Count 8.9 K/mm3 (4.5-10.0)
[2021-09-25 06:21] LABS: Alanine Aminotransferase 20 U/L (6-50); Albumin Level 3.6 g/dL (3.5-5.1); Alkaline Phosphatase 56 U/L (38-126); Anion Gap 4 mmol/L (8-16); Aspartate Amino Transferase 20 U/L (17-59); Bilirubin,Total 0.5 mg/dL (0.2-1.3); Blood Urea Nitrogen 17 mg/dL (9-20); Calcium 9.4 mg/dL (8.4-10.2); Carbon Dioxide 25 mmol/L (22-30); Chloride 105 mmol/L (98-107); Estimated CRCL calculation 142 ml/min; Estimated Glomerular Filt Rate > 60; Glucose 134 mg/dL (65-110); Sodium 134 mmol/L (137-145)
[2021-09-25 06:23] VITALS: BP 120/79; PULSE 70; RESP 18; TEMP 36.4; O2SAT 97
--- NOTE | 2021-09-25 07:58 | P.PNAN_ITS ---
Anes - Prog Note Post-Op Date/Time: 09/25/21 07:58 Cardiovascular status: normal Respiratory status: normal Airway patency: baseline Mental status: baseline Post-Op hydration status: normal Vital Signs: Last Vital Signs Temp 36.4 C 09/25/21 06:23 Pulse 70 09/25/21 06:23 Resp 18 09/25/21 06:23 BP 120/79 09/25/21 06:23 Pulse Ox 97 09/25/21 06:23 Pain Score (VAS): 0 I/O: Intake & Output 09/24/21 09/24/21 09/25/21 15:59 23:59 07:59 Intake Total 580 1090 1000 Output Total 1300 Balance 580 1090 -300 Laboratory Tests 09/25/21 05:45 09/25/21 05:45 09/24/21 09/24/21 09/24/21 11:22 12:01 16:12 WBC RBC Hgb Hct MCV MCH MCHC RDW Plt Count MPV Immature Gran % (Auto) Neut % (Auto) Lymph % (Auto) [place] % (Auto) Eos % (Auto) Baso % (Auto) Lymph # (Auto) [place] # (Auto) Eos # (Auto) Baso # (Auto) Abs Immat Gran (auto) Absolute Neuts (auto) Absolute Nucleated RBC Nucleated RBC % Sodium Potassium Chloride Carbon Dioxide Anion Gap BUN Creatinine Estim Creat Clear Calc Estimated GFR Glucose POC Capillary Glucose 136 H 170 H 172 H Calcium Total Bilirubin AST ALT Alkaline Phosphatase Total Protein Albumin 09/24/21 09/25/21 09/25/21 19:38 05:45 05:45 WBC 8.9 RBC 3.73 L Hgb 11.3 L Hct 35.3 L MCV 94.6 MCH 30.3 MCHC 32.0 RDW 12.3 Plt Count 212 MPV 10.9 H Immature Gran % (Auto) 0.6 H Neut % (Auto) 75.0 H Lymph % (Auto) 15.6 L [place] % (Auto) 8.5 Eos % (Auto) 0.1 Baso % (Auto) 0.2 Lymph # (Auto) 1.39 [place] # (Auto) 0.8 H Eos # (Auto) 0.0 Baso # (Auto) 0.0 Abs Immat Gran (auto) 0.05 H Absolute Neuts (auto) 6.7 Absolute Nucleated RBC 0.0 Nucleated RBC % 0.0 Sodium 134 L Potassium 4.0 Chloride 105 Carbon Dioxide 25 Anion Gap 4 L BUN 17 Creatinine 0.70 Estim Creat Clear Calc 142 Estimated GFR > 60 Glucose 134 H POC Capillary Glucose 170 H Calcium 9.4 Total Bilirubin 0.5 AST 20 ALT 20 Alkaline Phosphatase 56 Total Protein 7.0 Albumin 3.6 Post-procedural complaints: none Patient Feedback: Patient satisfied with anesthetic care.
[2021-09-25 08:06] LABS: Glucose Point of Care 120 mg/dl (65-105)
[2021-09-25] MEDS: METOPROLOL SUCCINATE EXT REL 50 MG TABCR PO (08:20)
[2021-09-25] MEDS: CHOLECALCIFEROL 1,000 UNITS TABLET 2000 UNITS PO (08:20)
[2021-09-25] MEDS: ATORVASTATIN 40 MG TABLET PO (08:20)
[2021-09-25] MEDS: metFORMIN HCL 500 MG TABLET 1000 MG PO (08:20)
[2021-09-25] MEDS: HYDROcodone/acetaminophen (*CRX) 5-325 MG TABLET 1 TAB PO (08:25)
--- NOTE | 2021-09-25 11:30 | PM.DS ---
DS: Admitting Diagnosis Discharge Date 09/25/2021 Admitting Diagnosis Obstruction of left ureteropelvic junction secondary to Ureterolithiasis DS: Discharge Diagnosis Discharge Diagnosis (1) Obstruction of left ureteropelvic junction due to stone: Code(s): N20.1 - Calculus of ureter Status: Acute Assessment and Plan: - Stent placed today. - Pt. to have stone removal on Saturday. - Control pain - Monitor CBC secondary to the continued bleeding post procedure. - Strain all urine. - IVF of NS at 100 ml/hr. - Monitor labs and vitals. - Hold tonight's Xarelto secondary to the procedure and bleeding. May restart it in AM after assessment. - 09/25/2021, Date of discharge: Pt. was kept overnight to continue to reassess stability as he was urinating much blood post procedure. His Hgb did drop some, but he has maintained stability. He had a stent placed yesterday by Dr. Portillo and is to have a stone removal tomorrow with Dr. Bonilla. Post stent placement Retrograde pyelogram shows that the stone may or may not have passed, but the pt. should still present here tomorrow for Dr. Bonilla as previously planned, as the results of the Retrograde pyelo are not definitive at this point. There has been no stone caught in straining either. Pt. does still complain of pain on the left side of the abdomen and in the left flank. (2) Obstructive uropathy: Code(s): N13.9 - Obstructive and reflux uropathy, unspecified Status: Acute Assessment and Plan: - As noted above in Problem #1. 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 - 09/25/2021, Date of discharge: Continue home regimen. (4) Paroxysmal atrial fibrillation: Code(s): I48.0 - Paroxysmal atrial fibrillation Status: Acute Assessment and Plan: - Holding dose of Xarelto tonight secondary to the amount of bleeding he is having post stent placement. - Can resume Xarelto tomorrow. - SCD's ordered. - 09/25/21, Date of discharge: Hold Xamarek tineo for possible procedure tomorrow. (5) Chronic anticoagulation: Code(s): Z79.01 - detention (current) use of anticoagulants Status: Acute Assessment and Plan: - See plan of care above for PAF (6) Obstructive sleep apnea on CPAP: Code(s): G47.33 - Obstructive sleep apnea (adult) (pediatric); Z99.89 - Dependence on other enabling machines and devices Status: Acute Assessment and Plan: - Continue to use CPAP at discharge. (7) Essential hypertension: Code(s): I10 - Essential (primary) hypertension Status: Acute Assessment and Plan: - Continue home BP meds of Metoprolol Succinate 50 mg QAM at discharge. DS: Summary Hospital Course Reason for hospitalization: Renal Colic from obstructing uropathy Hospital Course: Please see above assessment and plan for full hospital course. Status at Discharge Functional status at discharge: independent ambulation Overall status at discharge: patient is back to baseline Time Spent with Patient Time attestation: Total time spent providing and/or coordinating discharge services: Time spent: Greater than 30 minutes Exam Const: General: uncomfortable Limitations: no limitations HENMT: Mouth: Yes moist mucous membranes Eyes: Sclera: sclerae normal Neck: Neck: supple and no JVD Lymphatic: lymphadenopathy not noted Resp: Effort & Inspection: normal respiratory effort Auscultation: clear to auscultation bilaterally Cardio: Rate: regular rate, not bradycardic and not tachycardic Rhythm: regular rhythm and regular rhythm Heart sounds: no gallops, no murmurs and no rubs GI: GI Palp: Ye
[2021-09-25 12:42] LABS: Glucose Point of Care 153 mg/dl (65-105)
[2021-09-25 14:43] VITALS: BP 119/69; PULSE 69; RESP 16; TEMP 36.6; O2SAT 97
== END 2021-09-25 15:00 | disposition home or self-care (01) ==
LOC: ANHED 15:52 → ANH3MED 16:28
PROVIDERS: Emergency Medicine; Physician Assistant; Urology; Admitting Provider Student in an Organized Health Care Education/Training Program; Emergency Provider Emergency Medicine; PCP Internal Medicine; Visit Provider Nurse Practitioner Adult Health
PROC: (CPT 52352; principal; 2021-09-24 10:30)
DX: N13.2 Hydronephrosis with renal and ureteral calculous obstruction (principal); N13.9 Obstructive and reflux uropathy, unspecified; Z79.01 Long term (current) use of anticoagulants; G47.33 Obstructive sleep apnea (adult) (pediatric); I48.0 Paroxysmal atrial fibrillation; E78.5 Hyperlipidemia, unspecified; I10 Essential (primary) hypertension; K21.9 Gastro-esophageal reflux disease without esophagitis; E11.9 Type 2 diabetes mellitus without complications; E66.01 Morbid (severe) obesity due to excess calories; Z68.42 Body mass index [BMI] 45.0-49.9, adult
CPT/HCPCS: 52332; 36415; 74176; 74420; 80048; 80053; 81001; 82948; 83735; 85025; 85027; 87086; 93005; 96361; 96365; 96374; 96375; 99285; A9270; C1758; C1769; C2617; G0378; J0696; J1100; J1885; J2250; J2270; J2405; J2704; J3010; J7030; J7120; Q9966

== ENCOUNTER 2021-09-26 00:45 | Day surgery (SDC) | payer OTHER, SELFPAY ==
[2021-09-22 12:07] VITALS: BMI 45.8
--- NOTE | 2021-09-22 12:38 | PC.NURSE ---
Report to the Outpatient Waiting Room, entrance under the green pavilion located off [facility], at time _6:30am on date ___09/26/21____. OR Time: __8:30am . - You and your visitor will be asked a series of questions to screen for COVID 19 for your protection. - Only one visitor is allowed at this time. - The patient visitor is requested to leave or wait in car when not with patient. - A mask is required within the hospital. Patients may have clear liquids (water, carbonated beverages, clear teas, apple juice) until 3 hours prior to surgery with a maximum of 20 ounces. - No food from midnight until time of surgery - Infants may have breast milk until 4 hours before surgery, formula 6 hours prior to surgery. - Children will be allowed to drink immediately following surgery. If applicable, please bring a bottle or sippy cup to assist with drinking. Juice, water, soda, and popsicles are readily available. For infants on formula, please bring formula the day of surgery. Pacifiers are allowed. Take the following medications with a SIP of water the morning of surgery: __METOPROLOL, PROPAFENONE Medications to discontinue per physician ____HOLD ALL VITAMINS/SUPPLEMENTS 3 DAYS PRE-OP Date to take last dose__09/22/21 Please no make-up, nail sinhala, hairspray, perfume, deodorant, or body powder the day of surgery. No jewelry (including any body piercings) or valuables the day of surgery, leave them at home. Please take a shower or bath the night before, or the morning of, surgery with an antibacterial soap. Wear comfortable, loose fitting clothing. Children are encouraged to wear pajamas. - Jewelry must be removed prior to entering the operating room. Rings and piercings that are not removed may be cut off. - The hospital will not accept responsibility for valuables. - Please leave all valuables, including medications, at home the day of surgery. If you are going home after surgery, a licensed local company tanker driver must drive you home. - NO public transportation without another adult. - We recommend that an adult stay with you for 24 hours following discharge. - We also recommend that you do not drive, make important decision, drink alcoholic beverages, or take any drugs that were not prescribed by your health care provider for at least 24 hours after your discharge time. For Pediatric surgeries, we recommend two adults accompany the child home (only one inside the building at this time). Follow any additional instructions given to you from your surgeon. If you or anyone in your household have experienced Covid symptoms in the past week, please notify your surgeon or the nurse liaison at the phone number below for possible testing. Telephone instructions given to _PATIENT AND , MARTELL, and asked if any additional questions and then verbalized understanding. Patient advised to call surgeon office or pre surgery nurse liaison [phone] if any additional questions.
[2021-09-26] VITALS (8 sets, daily range): BP systolic 127–150; BP diastolic 87–102; PULSE 60–82; RESP 14–23; TEMP 35.7–36.2; O2SAT 93–100; BMI 45.5
--- NOTE | ~2021-09-26 | XR_ITS ---
EXAMINATION: XR stent kub - surgery DATE: 09/26/2021 09:26 INDICATION: Left internal ureteral stent placement TECHNIQUE: Fluoroscopic images from a left internal ureteral stent placement are submitted for review . 28 seconds of fluoroscopy time. 2 fluoroscopic images FINDINGS: There is a left double-J internal ureteral stent projecting in expected position, with proximal [place] loop at the level of the renal pelvis and distal loop in the pelvis within the bladder lumen. IMPRESSION: 1. Left internal ureteral stent placement. Please refer to real-time procedural findings for detail s. Reviewed, dictated and finalized at location A. IMPRESSION: 1. Left internal ureteral stent placement. Please refer to real-time procedur al findings for details.
--- NOTE | 2021-09-26 06:54 | WPDHPUPDATE1 ---
History and Physical Update Update Date/Time: 09/26/21 06:54 History and Physical has been reviewed, including an updated exam of the patient. There are NO changes in the patient's condition. Risks, benefits, and alternatives have been discussed and questions answered. Patient agrees to proceed with procedure. Proceed with cystoscopy, left retrograde, left ureteroscopy with holmium laser, stone extraction, stent exchange.
--- NOTE | 2021-09-26 07:50 | WPDANESEFPP ---
Anes - Eval Final PreProcedure Day of Procedure 09/26/21 07:50 Patient weight: obese Heart: irregular rhythm Lungs: clear to auscultation Airway: Mallampati scale class II Neurological: alert and oriented Last oral intake: >/= 8 hours ASA classification: III Emergent: no Anesthetic plan: proceed Anesthesia type and monitoring: general GIVS and standard monitoring Results Review: All pre-operative results and documents have been reviewed as part of the pre-operative evaluation. Informed Consent: The patient's anesthetic plan and its attendant risks and benefits were discussed with the patient/family/POA. Questions were solicited and answers provided to the satisfaction of the patient/family/POA.
[2021-09-26 07:51] LABS: Glucose Point of Care 115 mg/dl (65-105)
[2021-09-26] MEDS: LACTATED RINGERS 1,000 ML 30 ML IV CONT (08:14)
[2021-09-26] MEDS: ceFAZolin 3 GM/D5W 100 ML 100 ML IVPB (08:20)
[2021-09-26] MEDS: LIDOCAINE HCL 2% GEL UROJET 10 ML PKG MUCOUS MEM (08:34)
--- NOTE | 2021-09-26 09:22 | W.PM.PROC2 ---
Procedure Note - Detailed Date of Procedure 09/26/21 Pre-op Diagnosis renal stones Post-op Diagnosis Same Procedure Performed Cystoscopy, left ureteroscopy with holmium laser, stone extraction, left stent exchange 4.8 [place] contour stent Surgeon Niko Bonilla MD Anesthesia General Description of Procedure Patient was taken to the operative suite correctly identified. Once anesthesia was obtained he was placed in dorsal lithotomy position and prepped and draped usual sterile fashion. Twenty-two Kazakh scope was inserted into the bladder. The prior stent was visualized and brought out to the meatus using a grasper. A guidewire was passed through the stent. Ureteral access sheath was then placed. Mini flexible ureteral scope was inserted. Patient had quite a bit of formed old clot in the bladder which we plucked out little by little. Inspection of the calices then revealed the stone somewhat in the upper lateral pole. Using a 273 micron fiber we fragmented stone into multiple small pieces. The largest of which were retrieved using escape basket and a 0 degree basket. Reinspection revealed no significant stone burden. 4.8 [place] contour stent was then placed with the proximal end in the upper pole and the distal in the bladder. 2% viscous lidocaine was inserted urethra. Patient is taken recovery stable condition. He will follow up in a week's time for stent removal with cystoscopy Drains Yes Packing No Pathology Yes Complications No immediate complications Condition Stable Disposition PACU
[2021-09-26 09:35] LABS: Glucose Point of Care 126 mg/dl (65-105)
[2021-09-26] MEDS: fentaNYL CITRATE INJ (*CRX) 100 MCG/2 ML VIAL 25 MCG IV PUSH ×2 (10:03→10:08)
[2021-09-26] MEDS: OXYBUTYNIN CHLORIDE 5 MG TABLET PO (11:01)
== END 2021-09-26 11:25 | disposition home or self-care (01) ==
PROVIDERS: PCP Internal Medicine; Visit Provider Urology
PROC: (CPT 52352; principal; 2021-09-26 08:30)
DX: N20.0 Calculus of kidney (principal); Z79.01 Long term (current) use of anticoagulants; Z79.899 Other long term (current) drug therapy
CPT/HCPCS: 52356; 82365; 82948; 88300; A9270; C1769; C1894; C2617; J0690; J2250; J2405; J2704; J3010; J7120

== ENCOUNTER 2022-02-02 15:57 | Outpatient (CLI) | payer OTHER, SELFPAY ==
--- NOTE | ~2022-02-02 | CT_ITS ---
EXAMINATION: CT lung screening DATE: 02/02/2022 16:13 INDICATION: Personal history of nicotine dependence. TECHNIQUE: Computed tomography (CT) of the chest was performed without intravenous contrast. The dose -length product was 535.57 mGy-cm. Automated exposure control and iterative reconstruction technique were employed. COMPARISON: None FINDINGS: No significant pleural or pericardial effusion. Cardiomegaly. No thoracic lymphadenopathy. The upper abdomen is unremarkable. Mild atherosclerosis. There is a 4 mm fissural nodule on the left, image 45. There is a 3 mm left lower lobe nodule. There is right middle and lower lobe atelectasis. No endobronchial lesions. No pneumothorax. There is pleural thickening bilaterally with scattered ple ural calcifications, likely from previous asbestos exposure. Moderate lumbar spondylosis with accentu ated kyphosis. IMPRESSION: 1. Lung-RADS category 2: Benign appearance or behavior. Continue annual screening with noncontrast lo w-dose chest CT in 12 months. Reviewed, dictated and finalized at location A. IMPRESSION: 1. Lung-RADS category 2: Benign appearance or behavior. Continue annual screeni ng with noncontrast low-dose chest CT in 12 months.
== END 2022-02-02 15:58 | disposition home or self-care (01) ==
PROVIDERS: PCP Internal Medicine; Visit Provider Nurse Practitioner
DX: Z12.2 Encounter for screening for malignant neoplasm of respiratory organs (principal); Z72.0 Tobacco use
CPT/HCPCS: 71271

== ENCOUNTER → 2022-06-26 07:33 | Outpatient (CLI) | payer OTHER, SELFPAY ==
--- NOTE | ~2022-06-26 | XR_ITS ---
EXAMINATION: XR abdomen/kub 1V INDICATION: History of kidney stones TECHNIQUE: Supine views of the abdomen were obtained on 2 radiographs. COMPARISON: CT from today FINDINGS: Bowel contents project over the kidneys limiting sensitivity for renal stones. The known 3 mm left proximal ureteral stone is not definitely identified. Right upper quadrant calcifications are consistent with chronic pancreatitis. There are phleboliths of the pelvis. A moderate volume of colo aleshia stool is present. IMPRESSION: 1. Known left proximal ureteral stone not well demonstrated. Reviewed, dictated and finalized at location L. HAND
--- NOTE | ~2022-06-26 | CT_ITS ---
EXAMINATION: CT abdomen pelvis wo con DATE: 06/26/2022 08:36 INDICATION: Gross hematuria. History kidney stones. TECHNIQUE: Computed tomography (CT) of the abdomen and pelvis was performed without intravenous contr ast. Automated exposure control and iterative reconstruction technique were employed. Exam dose: 115 0.95 mGy-cm total exam DLP. COMPARISON: 09/23/2021 CT abdomen pelvis noncontrast examination FINDINGS: Mild atelectasis and/or scarring at the lung bases. Cardiomegaly. Trace pericardial fluid. No pleural effusion. 10 mm hypoattenuating lesion at the lateral segment of the left hepatic lobe, likely a hepatic cyst. The liver is otherwise unremarkable. Gallbladder appears unremarkable. No pericholecystic fluid or fa t stranding. No bile duct or pancreatic duct dilatation. There are multiple calcifications of the pancreas including one at the tail multiple stones of the he ad and uncinate process, consistent with chronic pancreatitis. No pancreatic mass lesion is detected. Normal morphology of the adrenal glands. Approximately 3 mm proximal left ureteral calculus with minimal left hydronephrosis. No other urinary tract calculus or hydroureteronephrosis. The urinary bladder is unremarkable. There are some prostate calcifications. Mild prostate enlargement. Normal caliber and mild atherosclerotic calcification of the abdominal aorta, iliac and femoral arter ies. No intraperitoneal or retroperitoneal or pelvic mass lesion or adenopathy or ascites. Diverticulosis of the left colon; no CT evidence of diverticulitis. No bowel obstruction, bowel wall thickening, pneumatosis or intraperitoneal free air. Small fat-containing umbilical hernia. Chronic mild compression fracture deformity of L1 and chronic mild anterior wedging of T8, both stabl e since 09/23/2021. IMPRESSION: 3 mm proximal left ureteral calculus with mild left hydronephrosis. Chronic pancreatitis 10 mm left hepatic cyst Diverticulosis of the left colon; no evidence of diverticulitis Cardiomegaly Reviewed, dictated and finalized at Location A. Reviewed, dictated and finalized at location A. NO DUTY MANAGER IMPRESSION: 3 mm proximal left ureteral calculus with mild left hydronephrosis . Chronic pancreatitis 10 mm left hepatic cyst Diverticulosis of the left colon; no evidence of diverticulitis Cardiomegaly
== END ==
PROVIDERS: PCP Internal Medicine; Visit Provider Nurse Practitioner Family
DX: N13.2 Hydronephrosis with renal and ureteral calculous obstruction (principal); K86.1 Other chronic pancreatitis; K76.89 Other specified diseases of liver; K57.30 Diverticulosis of large intestine without perforation or abscess without bleeding; I51.7 Cardiomegaly
CPT/HCPCS: 74018; 74176

== ENCOUNTER → 2022-07-12 14:06 | Outpatient (CLI) | payer OTHER, SELFPAY ==
--- NOTE | ~2022-07-12 | XR_ITS ---
Supine and upright views of the abdomen Clinical history: Left ureteral stone COMPARISON: 06/26/2022 Findings: Bowel gas pattern is nonspecific. No evidence for obstruction or free air. No definite deshawn l or ureteral stones seen. Calcification the right mid abdomen is consistent with pancreatic head mary cification based on prior CT from 06/26/2022. Osseous structures are intact. Impression: No renal or ureteral stone identified. Stable calcifications of the pancreatic head, as noted above. Reviewed, dictated and finalized at location . CONSERVATION AIDE Impression: No renal or ureteral stone identified. Stable calcifications of the pancreatic head, as noted above.
== END ==
PROVIDERS: PCP Internal Medicine; Visit Provider Nurse Practitioner Family
DX: N20.1 Calculus of ureter (principal)
CPT/HCPCS: 74018

== ENCOUNTER 2022-08-31 08:29 | Outpatient (CLI) | payer OTHER, SELFPAY ==
[2022-08-31 13:49] LABS: Basophils Absolute Auto 0.1 K/mm3 (0.0-0.1); Basophils Percent Auto 0.5 % (0.2-1.2); Eosinophils Absolute Auto 0.2 K/mm3 (0-0.3); Eosinophils Percent Auto 2.5 % (0-4.4); Hematocrit 43.6 % (42.0-52.0); Hemoglobin 13.7 g/dL (14.0-18.0); Immature Granulocyte Absolute 0.04 K/mm3 (0.00-0.031); Immature Granulocyte Percent A 0.4 % (0-0.5); Lymphocytes Absolute Auto 2.08 K/mm3 (0.9-3.2); Lymphocytes Percent Auto 21.7 % (18.3-44.2); Mean Corpuscular HGB Conc 31.4 g/dl (32-36); Mean Corpuscular Hemoglobin 30.2 pg (26-34); Mean Platelet Volume 11.7 fl (7.4-10.4); Monocytes Absolute Auto 0.5 K/mm3 (0.1-0.6); Monocytes Percent Auto 5.5 % (2.6-8.5); Neutrophils Absolute Auto 6.7 K/mm3 (1.3-6.7); Neutrophils Percent Auto 69.4 % (45.5-73.1); Platelet Count Result 225 k/mm3 (150-375); Red Blood Count 4.54 M/mm3 (4.6-6.20); Red Cell Distribution Width 13.4 % (11.5-14.5); White Blood Count 9.6 K/mm3 (4.5-10.0)
[2022-08-31 14:15] LABS: Alanine Aminotransferase 34 U/L (6-50); Albumin Level 4.4 g/dL (3.5-5.1); Alkaline Phosphatase 69 U/L (38-126); Anion Gap 8 mmol/L (8-16); Aspartate Amino Transferase 47 U/L (17-59); Bilirubin,Total 0.6 mg/dL (0.2-1.3); Blood Urea Nitrogen 15 mg/dL (9-20); Calcium 10.6 mg/dL (8.4-10.2); Carbon Dioxide 25 mmol/L (22-30); Chloride 105 mmol/L (98-107); Cholesterol 99 mg/dL (0-200); Estimated Glomerular Filt Rate > 60; Glucose 121 mg/dL (65-110); HDL Direct 25 mg/dL; Sodium 138 mmol/L (137-145); Triglycerides 225 mg/dL (<150)
[2022-08-31 14:31] LABS: LDL Cholesterol Direct 49 mg/dL
[2022-08-31 14:35] LABS: Hemoglobin A1C 6.2 % (<5.7)
== END 2022-08-31 08:30 | disposition home or self-care (01) ==
LOC: ANHGOSHLAB 08:30
PROVIDERS: PCP Internal Medicine; Visit Provider Nurse Practitioner
DX: E11.65 Type 2 diabetes mellitus with hyperglycemia (principal)
CPT/HCPCS: 36415; 80053; 80061; 83036; 85025

== ENCOUNTER 2023-02-18 08:38 | Outpatient (CLI) | payer OTHER, SELFPAY ==
[2023-02-18 19:52] LABS: Anion Gap 8 mmol/L (8-16); Blood Urea Nitrogen 15 mg/dL (9-20); Calcium 10.2 mg/dL (8.4-10.2); Carbon Dioxide 25 mmol/L (22-30); Chloride 105 mmol/L (98-107); Estimated Glomerular Filt Rate > 60; Glucose 145 mg/dL (65-110); Potassium 4.3 mmol/L (3.4-5.0); Sodium 138 mmol/L (137-145)
[2023-02-18 20:46] LABS: Basophils Absolute Auto 0.1 K/mm3 (0.0-0.1); Basophils Percent Auto 0.7 % (0.2-1.2); Eosinophils Absolute Auto 0.3 K/mm3 (0-0.3); Eosinophils Percent Auto 3.3 % (0-4.4); Hematocrit 43.3 % (42.0-52.0); Hemoglobin 13.8 g/dL (14.0-18.0); Immature Granulocyte Absolute 0.09 K/mm3 (0.00-0.031); Lymphocytes Absolute Auto 2.41 K/mm3 (0.9-3.2); Lymphocytes Percent Auto 26.7 % (18.3-44.2); Mean Corpuscular HGB Conc 31.9 g/dl (32-36); Mean Corpuscular Hemoglobin 31.1 pg (26-34); Mean Corpuscular Volume 97.5 fl (80-100); Mean Platelet Volume 11.3 fl (7.4-10.4); Monocytes Absolute Auto 0.6 K/mm3 (0.1-0.6); Monocytes Percent Auto 6.9 % (2.6-8.5); Neutrophils Absolute Auto 5.5 K/mm3 (1.3-6.7); Neutrophils Percent Auto 61.4 % (45.5-73.1); Platelet Count Result 240 k/mm3 (150-375); Red Blood Count 4.44 M/mm3 (4.6-6.20); Red Cell Distribution Width 12.1 % (11.5-14.5)
[2023-02-18 21:55] LABS: Hemoglobin A1C 6.3 % (<5.7)
[2023-02-21 14:37] LABS: Vitamin D 1,25 (OH)2 Total 67 pg/mL (18-72); Vitamin D2 1,25 (OH)2 <8 pg/mL; Vitamin D3 1,25 (OH)2 67 pg/mL
[2023-02-23 20:17] LABS: Parathyroid Hormone Related Pr 11 pg/mL (11-20)
== END 2023-02-18 08:39 | disposition home or self-care (01) ==
PROVIDERS: PCP Internal Medicine; Visit Provider Nurse Practitioner
DX: R53.83 Other fatigue (principal); E11.9 Type 2 diabetes mellitus without complications; E83.52 Hypercalcemia
CPT/HCPCS: 36415; 80048; 82652; 83036; 83519; 85025

== ENCOUNTER 2023-03-13 00:23 | Day surgery (SDC) | payer OTHER, SELFPAY ==
[2023-03-07 14:47] VITALS: BMI 40.6
--- NOTE | 2023-03-12 10:35 | PM.HPGS ---
History of Present Illness History of Present Illness Consent: Risks, benefits, and alternatives have been discussed and questions answered. Patient agrees to proceed with procedure. Chief complaint: hx colon polyps Narrative: David Maria is a 63 year old male referred for colon cancer screening. Three hyperplastic polyps were removed at the time of his last colonoscopy about 10 years ago. Review of Systems Review of Systems: All systems reviewed & are unremarkable except as noted in HPI and below PMFSH Past Medical History Medical History Chronic anticoagulation Continuous tobacco abuse Essential hypertension Gastroesophageal reflux disease Hypercholesterolemia Hypertension Morbid obesity due to excess calories Obstructive sleep apnea on CPAP Obstructive uropathy Paroxysmal atrial fibrillation Status post cardioversion x3. Type 2 diabetes mellitus Vitamin D deficiency Surgical History Surgical History History of appendectomy History of cardioversion 2009, 2010, 2011 History of vasectomy Family History Family History Sibling Diabetes mellitus Patient's brother is in good health Mother Hypertension Family history of atrial fibrillation Father Malignant neoplasm of prostate Social History Social History Social History: Surrogate decision maker: Nicole Maria, spouse. Code status: Full code. Caffeine-coffee daily Smoking packs per day: 1 Smoking cigarettes per day: 20.0 Years smoked: 35 Smoking pack-years: 35.00 Smoking status: Former smoker Tobacco type: cigarettes Second hand tobacco smoke exposure: No Additional smoking assessment comments: Quit smoking for 10 years, now smoking 0.5 packs a day for the past 1 year Alcohol intake: current Alcohol use details: Consumes alcohol about once a month Substance use: never Substance use type: does not use Lack of Transportation: No Lack of Food: Never True Current Housing: I Have Housing Concerned About Future Housing: No Difficulty Paying Gas/Electric Bills: No Difficulty Paying for Meds: No Currently Unemployed: No Education: Associate Degree Difficulty w/ Childcare or Family Care: No Living arrangements: with family Occupation/Education: occupation Additional occupation/education comments: Electrical carla. Spiritual care concerns: No Meds Home Medications and Allergies Home Medications Medication Instructions Recorded Confirmed Type atorvastatin 40 mg tablet 40 mg PO DAILY 11/18/19 03/13/23 History rivaroxaban 20 mg tablet (Xarelto) 20 mg PO QPM 11/18/19 03/13/23 History cholecalciferol (vitamin D3) 50 2,000 unit PO DAILY 04/19/20 03/13/23 History mcg (2,000 unit) capsule acetaminophen 500 mg capsule 1,500 mg PO DAILY 09/22/21 03/13/23 History metformin 1,000 mg tablet See Rx Instructions .Route 01/18/23 03/13/23 Rx .COMPLEX #180 tabs semaglutide 0.25 mg or 0.5 mg (2 0.5 mg (0.736 mL) subcut WEEKLY #3 02/20/23 03/13/23 Rx mg/3 mL) subcutaneous pen injector mL metoprolol succinate 50 mg 75 mg PO DAILY 03/13/23 03/13/23 History tablet,extended release 24 hr Allergies Allergy/AdvReac Type Severity Reaction Status Date / Time No Known Allergies Allergy Unknown Verified 03/13/23 09:38 Exam Resp: Auscultation: clear to auscultation bilaterally Cardio: Rate: regular rate Rhythm: regular rhythm GI: GI Palp: Yes Soft to palpation and No Tenderness to palpation present (GI) Assessment and Plan Assessment and plan (1) Screening for colon cancer: Code(s): Z12.11 - Encounter for screening for malignant neoplasm of colon Status: Acute Assessment and Plan: Colonoscopy with possible biopsy or polypectomy or cautery or injection of s
[2023-03-13 09:40] VITALS: BP 148/86; PULSE 89; RESP 17; TEMP 36.1; O2SAT 97; BMI 42.0
[2023-03-13] MEDS: LACTATED RINGERS 1,000 ML 150 ML IV CONT (09:55)
[2023-03-13 10:19] LABS: Glucose Point of Care 168 mg/dl (65-105)
--- NOTE | 2023-03-13 10:25 | WPDANESEPPF ---
Anes - Initial Pre Proc Eval Procedure: Operation Date: 03/13/23 10:45 Proposed Procedures p Screening Colonoscopy - Juan Antonio Arita MD Date/Time: 03/13/23 10:25 Surgeon: Juan Antonio Arita MD Pre Op Diagnosis: hx colon polyps Patient Data Age: 63 Gender: M Height: 1.8 m Weight: 136.7 kg Last Vital Signs Temp 97 F L 03/13/23 09:40 Pulse 89 03/13/23 09:40 Resp 17 03/13/23 09:40 BP 148/86 H 03/13/23 09:40 Pulse Ox 97 03/13/23 09:40 O2 Del Method Room Air 03/13/23 09:40 Allergies Allergy/AdvReac Type Severity Reaction Status Date / Time No Known Allergies Allergy Unknown Verified 03/13/23 09:38 Home Medications Medication Instructions Recorded Confirmed Type atorvastatin 40 mg tablet 40 mg PO DAILY 11/18/19 03/13/23 History rivaroxaban 20 mg tablet (Xarelto) 20 mg PO QPM 11/18/19 03/13/23 History cholecalciferol (vitamin D3) 50 2,000 unit PO DAILY 04/19/20 03/13/23 History mcg (2,000 unit) capsule acetaminophen 500 mg capsule 1,500 mg PO DAILY 09/22/21 03/13/23 History metformin 1,000 mg tablet See Rx Instructions .Route 01/18/23 03/13/23 Rx .COMPLEX #180 tabs semaglutide 0.25 mg or 0.5 mg (2 0.5 mg (0.736 mL) subcut WEEKLY #3 02/20/23 03/13/23 Rx mg/3 mL) subcutaneous pen injector mL metoprolol succinate 50 mg 75 mg PO DAILY 03/13/23 03/13/23 History tablet,extended release 24 hr Laboratory Tests 03/13/23 09:46 POC Capillary Glucose 168 H mg/dl (65-105) Patient hx anesthesia problems: none Family hx anesthesia problems: none Results Review: All pre-operative results and documents have been reviewed as part of the pre-operative evaluation. [facility] Past Medical History Medical History Chronic anticoagulation Continuous tobacco abuse Essential hypertension Gastroesophageal reflux disease Hypercholesterolemia Hypertension Morbid obesity due to excess calories Obstructive sleep apnea on CPAP Obstructive uropathy Paroxysmal atrial fibrillation Status post cardioversion x3. Type 2 diabetes mellitus Vitamin D deficiency Surgical History Surgical History History of appendectomy History of cardioversion 2009, 2010, 2012 History of vasectomy Family History Family History Sibling Diabetes mellitus Patient's brother is in good health Mother Hypertension Family history of atrial fibrillation Father Malignant neoplasm of prostate Social History Social History Social History: Surrogate decision maker: Nicole Maria, spouse. Code status: Full code. Caffeine-coffee daily Smoking packs per day: 1 Smoking cigarettes per day: 20.0 Years smoked: 35 Smoking pack-years: 35.00 Smoking status: Former smoker Tobacco type: cigarettes Second hand tobacco smoke exposure: No Additional smoking assessment comments: Quit smoking for 10 years, now smoking 0.5 packs a day for the past 1 year Alcohol intake: current Alcohol use details: Consumes alcohol about once a month Substance use: never Substance use type: does not use Lack of Transportation: No Lack of Food: Never True Current Housing: I Have Housing Concerned About Future Housing: No Difficulty Paying Gas/Electric Bills: No Difficulty Paying for Meds: No Currently Unemployed: No Education: Associate Degree Difficulty w/ Childcare or Family Care: No Living arrangements: with family Occupation/Education: occupation Additional occupation/education comments: Electrical carla. Spiritual care concerns: No Anes - Eval Final PreProcedure Day of Procedure 03/13/23 10:25 Patient weight: morbidly obese Heart: regular rate and rhythm Lungs: clear to auscultation Airway: Mallampati scale class II Neurological: alert and orie
[2023-03-13 10:44] VITALS: BP 108/64; PULSE 97; RESP 19; O2SAT 94
[2023-03-13 10:54] VITALS: BP 123/83; PULSE 78; RESP 20; O2SAT 97
[2023-03-13 11:04] VITALS: BP 132/91; PULSE 94; RESP 22; O2SAT 98
== END 2023-03-13 11:11 | disposition home or self-care (01) ==
PROVIDERS: PCP Internal Medicine; Visit Provider Internal Medicine Gastroenterology
PROC: 0DJD8ZZ Inspection of Lower Intestinal Tract, Via Natural or Artificial Opening Endoscopic (ICD-10-PCS; CPT 45378; principal; 2023-03-13 10:45)
DX: Z12.11 Encounter for screening for malignant neoplasm of colon (principal); K57.30 Diverticulosis of large intestine without perforation or abscess without bleeding; K64.8 Other hemorrhoids; Z86.010 Personal history of colon polyps; I10 Essential (primary) hypertension; I48.0 Paroxysmal atrial fibrillation; E11.9 Type 2 diabetes mellitus without complications; E78.00 Pure hypercholesterolemia, unspecified; G47.33 Obstructive sleep apnea (adult) (pediatric); E55.9 Vitamin D deficiency, unspecified; K21.9 Gastro-esophageal reflux disease without esophagitis; E66.01 Morbid (severe) obesity due to excess calories; Z68.41 Body mass index [BMI] 40.0-44.9, adult; F17.210 Nicotine dependence, cigarettes, uncomplicated; Z79.01 Long term (current) use of anticoagulants; Z79.84 Long term (current) use of oral hypoglycemic drugs; Z79.85 Long-term (current) use of injectable non-insulin antidiabetic drugs
CPT/HCPCS: 45378; 82948; J2001; J2704; J7120

== ENCOUNTER 2023-08-26 08:56 | Outpatient (CLI) | payer OTHER, SELFPAY ==
[2023-08-26 11:10] LABS: Alanine Aminotransferase 42 U/L (6-50); Albumin Level 4.5 g/dL (3.5-5.1); Alkaline Phosphatase 58 U/L (38-126); Anion Gap 9 mmol/L (4-12); Aspartate Amino Transferase 57 U/L (17-59); Bilirubin,Total 0.6 mg/dL (0.2-1.3); Blood Urea Nitrogen 13 mg/dL (9-20); Calcium 10.8 mg/dL (8.4-10.2); Carbon Dioxide 23 mmol/L (22-30); Chloride 107 mmol/L (98-107); Cholesterol 114 mg/dL (0-200); Estimated Glomerular Filt Rate > 60; Glucose 155 mg/dL (65-110); HDL Direct 36 mg/dL; Potassium 4.1 mmol/L (3.4-5.0); Sodium 139 mmol/L (137-145); Triglycerides 160 mg/dL (<150)
[2023-08-26 11:21] LABS: LDL Cholesterol Direct 65 mg/dL
[2023-08-26 11:40] LABS: Prostate Specific Antigen 1.9 ng/mL (< OR = 4.0)
[2023-08-26 11:59] LABS: Hemoglobin A1C 7.1 % (<5.7)
== END 2023-08-26 08:57 | disposition home or self-care (01) ==
PROVIDERS: PCP Internal Medicine; Visit Provider Nurse Practitioner
DX: Z12.5 Encounter for screening for malignant neoplasm of prostate (principal); E11.9 Type 2 diabetes mellitus without complications
CPT/HCPCS: 36415; 80053; 80061; 83036; 84153; G0103

== ENCOUNTER 2024-02-12 08:58 | Outpatient (CLI) | payer OTHER, SELFPAY ==
[2024-02-12 19:00] LABS: Basophils Absolute Auto 0.1 K/mm3 (0.0-0.1); Basophils Percent Auto 0.8 % (0.2-1.2); Eosinophils Absolute Auto 0.2 K/mm3 (0-0.3); Eosinophils Percent Auto 2.2 % (0-4.4); Hematocrit 42.9 % (42.0-52.0); Hemoglobin 13.7 g/dL (14.0-18.0); Immature Granulocyte Absolute 0.05 K/mm3 (0.00-0.031); Immature Granulocyte Percent A 0.7 % (0-0.5); Lymphocytes Absolute Auto 1.99 K/mm3 (0.9-3.2); Lymphocytes Percent Auto 27.4 % (18.3-44.2); Mean Corpuscular HGB Conc 31.9 g/dl (32-36); Mean Corpuscular Hemoglobin 29.8 pg (26-34); Mean Corpuscular Volume 93.5 fl (80-100); Mean Platelet Volume 11.6 fl (7.4-10.4); Monocytes Absolute Auto 0.5 K/mm3 (0.1-0.6); Monocytes Percent Auto 6.9 % (2.6-8.5); Neutrophils Absolute Auto 4.5 K/mm3 (1.3-6.7); Platelet Count Result 235 k/mm3 (150-375); Red Blood Count 4.59 M/mm3 (4.6-6.20); Red Cell Distribution Width 12.5 % (11.5-14.5); White Blood Count 7.3 K/mm3 (4.5-10.0)
[2024-02-12 19:49] LABS: Alanine Aminotransferase 42 U/L (6-50); Albumin Level 4.5 g/dL (3.5-5.1); Alkaline Phosphatase 58 U/L (38-126); Anion Gap 8 mmol/L (4-12); Aspartate Amino Transferase 42 U/L (17-59); Bilirubin,Total 0.7 mg/dL (0.2-1.3); Blood Urea Nitrogen 13 mg/dL (9-20); Calcium 10.7 mg/dL (8.4-10.2); Carbon Dioxide 28 mmol/L (22-30); Chloride 101 mmol/L (98-107); Cholesterol 115 mg/dL (0-200); Estimated Glomerular Filt Rate > 60; Glucose 137 mg/dL (65-110); HDL Direct 31 mg/dL; Potassium 4.3 mmol/L (3.4-5.0); Sodium 137 mmol/L (137-145); Triglycerides 184 mg/dL (<150)
[2024-02-12 20:02] LABS: LDL Cholesterol Direct 55 mg/dL
[2024-02-12 20:29] LABS: Prostate Specific Antigen 2.1 ng/mL (< OR = 4.0)
[2024-02-12 20:34] LABS: Hemoglobin A1C 6.9 % (<5.7)
[2024-02-14 12:08] LABS: Protein, Total 6.9 g/dL (6.1-8.1)
[2024-02-14 16:33] LABS: Creatinine, Random Urine 222 mg/dL (20-320); Total Protein/Creatinine Ratio 50 mg/g creat (25-148)
[2024-02-14 16:44] LABS: Albumin 4.1 g/dL (3.8-4.8); Alpha 1 Globulin 0.3 g/dL (0.2-0.3); Alpha 2 Globulin 0.8 g/dL (0.5-0.9); Beta 1 Globulin 0.5 g/dL (0.4-0.6); Gamma Globulin 0.8 g/dL (0.8-1.7)
== END 2024-02-12 08:59 | disposition home or self-care (01) ==
LOC: ANHGOSHLAB 08:59
PROVIDERS: PCP Internal Medicine; Visit Provider Nurse Practitioner
DX: Z12.5 Encounter for screening for malignant neoplasm of prostate (principal); E11.9 Type 2 diabetes mellitus without complications; E83.52 Hypercalcemia
CPT/HCPCS: 36415; 80053; 80061; 82570; 83036; 84153; 84155; 84156; 84165; 84166; 85025; G0103

== ENCOUNTER 2024-02-28 07:00 | Outpatient (CLI) | payer OTHER, SELFPAY ==
--- NOTE | ~2024-02-28 | CT_ITS ---
CT Scan of the Chest without Contrast: Clinical Indication: Lung cancer screening, nicotine dependence Technique: Contiguous sections were acquired throughout the chest without intravenous contrast. Dose reduction technique was used on this scan by utilizing automated exposure control and iterative recon struction technique. The dose-length product (DLP) was 499.66 mGy-cm. COMPARISON: 02/02/2022 Findings: There is no evidence of any significant mediastinal, hilar or axillary lymphadenopathy. Coronary christiano ry calcifications are present. There is no evidence of pleural or pericardial effusion. The lungs are clear, aside from linear bibasilar atelectasis or scarring. Images through the upper abdomen reveal no abnormalities. Impression: Lung RADS 1: Negative. 12 month follow-up screening CT advised. Reviewed, dictated and finalized at location . Impression: Lung RADS 1: Negative. 12 month follow-up screening CT advised.
== END 2024-02-28 07:01 | disposition home or self-care (01) ==
PROVIDERS: PCP Internal Medicine; Visit Provider Nurse Practitioner
DX: Z12.2 Encounter for screening for malignant neoplasm of respiratory organs (principal); Z87.891 Personal history of nicotine dependence
CPT/HCPCS: 71271

== ENCOUNTER 2024-08-12 10:44 | Outpatient (CLI) | payer OTHER, SELFPAY ==
--- OUTSIDE RECORDS SUMMARY | 2024-08-12 12:14 | XMS_ITS | Clinical Summary ---
Author Organization [facility] [place] [address] Address [address] [place] [address] Care Team Providers Care Marriage And Family Counselor Name Role Phone Abdias Gama DO Primary Care Provider [phone] Allergies No known active allergies Medications metFORMIN (GLUCOPHAGE) 500 mg tablet Take 1 tablet (500 mg total) by mouth 2 (two) times a day with meals Active ERGOCALCIFEROL, VITAMIN D2, ORAL Take 2,000 Units by mouth daily Active atorvastatin (LIPITOR) 40 mg tablet Take 1 tablet (40 mg total) by mouth daily 90 tablet 3 01/14/2024 Active Ozempic 2 mg/dose (8 mg/3 mL) pen injector injection Inject 2 mg under the skin 01/22/2024 Active metoprolol XL (TOPROL-XL) 100 mg 24 hr tablet Take 1 tablet (100 mg total) by mouth daily 90 tablet 3 03/19/2024 Active rivaroxaban (Xarelto) 20 mg tablet TAKE 1 TABLET BY MOUTH EVERY EVENING WITH FOOD 90 tablet 06/09/2024 Active Active Problems Problem Noted Date Diagnosed Date Other chest pain 06/21/2021 Localized edema 12/14/2020 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 2 diabetes mellitus ([facility]) 12/22/2019 Encounter for therapeutic drug monitoring 2017 Morbid obesity with BMI of 40.0-44.9, adult 0 12/2016 OZ on CPAP 11/23/2015 Overview (08/17/2016): OZ on CPAP Hypertension associated with diabetes 11/23/2015 Overview (08/17/2016): HTN (hypertension), benign Chronic anticoagulation 11/23/2015 Overview (08/17/2016): Chronic anticoagulation Body mass index 40+ - severely obese 11/23/2015 Overview (08/17/2016): Morbid obesity with BMI of 40.0-44.9, adult Longstanding persistent atrial fibrillation (CMS /HCC) 11/23/2015 Overview (08/17/2016): Chronic atrial fibrillation Resolved Problems Problem Noted Date Diagnosed Date Resolved Date Dyslipidemia 11/23/2015 06/21/2021 Overview (08/17/2016): Mixed dyslipidemia Atrial fibrillation (CMS/HCC) 09/26/2013 07/02/2022 Overview (08/16/2016): ATRIAL FIBRILLATION Hyperlipidemia 09/26/2013 06/21/2021 Overview (08/17/2016): Hyperlipidemia Surgical History Surgery Date Site/Laterality Comments OTHER SURGICAL HISTORY Atrial fibrillation: Electrocardioversion and coumadin--SRl OTHER SURGICAL HISTORY Arrhythmias (Persistent parox A. Fib)-nonvalvular: Medical History Medical History Date Comments Hx Other Medical Broke R wrist Hyperlipidemia Hyperlipidemia Atrial fibrillation (HCC) Atrial fibrillation Hypertension Hypertension Hx Other Medical Arrhythmias (Pe rsistent parox A. Fib)-nonvalvular Adiposity Obesity Hx Other Medical Sleep Apnea, CP AP Chronic kidney disease Family History Medical History Relation Name Comments Other Brother 2 Alive and well; Diabetes type II Father Diabetes me llitus type 2; Prostate cancer Father Cancer -pros [place]; Coronary artery disease Maternal Grandfather Coronary artery disease; Hypertension Mother Hypertension; Other Mother Cardiac arrhyth mias; Coronary artery disease Paternal Grandfather Coronary artery disease; Coronary artery disease Paternal Grandmother Coronary artery disease; Stroke Paternal Grandmother Stroke; Hypertension Sister 1 Hypertension; Diabetes type II Sister 2 Diabetes me llitus type 2; Relation Name Status Comments Brother 1 Alive Brother 2 Father Maternal Grandfather Mother Paternal Grandfather Paternal Grandmother Sister 1 Sister 2 Social History Tobacco Use Types Packs/Day Years Used Date Smoking Tobacco: Former Cigarettes Q uit: 02/25/2023 Smokeless Tobacco: Never Tobacco Cessation:Counseling Given: Not Answered Comments:Smoking History Packs/day: 1 Packs Alcohol Use Standard Drinks/Week Comments No 0 (1 standard drink = 0.6 oz pur e alcohol) Sex and Gender Information Value Date Recorded Sex Assigned at Not on file Legal Sex Male 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 Gender Identity Not on file Sexual Orientation Not on file Obstetrics History Last Filed Vital Signs Vital Sign Reading Time Taken Comments Blood Pressure 122/70 03/19/2024 8:18 AM RUBY ON RAILS WEB DEVELOPER Pulse 101 03/19/2024 8:18 AM RUBY ON RAILS WEB DEVELOPER Temperature - - Respiratory Rate - - Oxygen Saturation 97% 03/19/2024 8:18 AM RUBY ON RAILS WEB DEVELOPER Inhaled Oxygen Concentration - - Weight 138.3 kg (305 lb) 03/19/2024 8:18 AM RUBY ON RAILS WEB DEVELOPER Height 180.3 cm (5' 11 ) 03/19/2024 8:18 AM RUBY ON RAILS WEB DEVELOPER Body Mass Index 42.54 03/19/2024 8:18 AM RUBY ON RAILS WEB DEVELOPER Plan of Treatment Health Maintenance Due Date Last Done Comments Albumin Creatinine Ratio, Urine 1961 Colon Cancer Screening-Colonoscopy 1961 Depression Screening 1961 Hemoglobin A1C 1961 Hepatitis C Screening 1961 Prostate Cancer Screening-PSA 1961 eGFR 1961 Dilated Eye Exam 1961 Foot Exam 1961 Hepatitis B Screening 1979 Regular Well Visit/Exam 18-64 1979 Pneumococcal vaccine <65 (1 of 2 - PCV) 1980 Zoster Vaccine (1 of 2) 2011 Influenza Vaccine (#1) 2024 Lipid Panel 02/24/2025 02/25/2024, 08/, 12/27/2021, Additional history exists DTaP/Tdap/Td Vaccine (2 - Td or Tdap) 06/12/2028 06/12/2018 Procedures Procedure Name Priority Date/Time Associated Diagnosis Comments POCT LIPID PANEL Routine 02/25/2024 10:3 7 AM CDT Lipid screening from Last 3 Months or Most Recently Relevant to Health Maintenance Results * POCT lipid panel (02/25/2024 10:37 AM CDT) Cholesterol, POC 121 mg/dL HDL, POC 34 mg/dL Triglycerides, POC 172 mg/dL LDL Cholesterol POC 52 mg/dL Chol/HDL Ratio, POC 1.5 Non-HDL Cholesterol, POC 87 mg/dL Cholesterol Total, POC 121 mg/dL Capillary blood 02/25/2024 1 0:37 AM CDT Ginger Tolbert NP POINT OF CARE TEST ORDERA BLES Final Result from Last 3 Months or Most Recently Relevant to Health Maintenance Insurance [facility] H[facility]/PPO Address: [address] [place] [address] [facility] CHO[facility] PL[facility] Care Teams Marriage And Family Counselor Relationship Specialty Start Date End Date Abdias Gama DO PCP - General 08/10/16
--- OUTSIDE RECORDS SUMMARY | 2024-08-12 12:14 | XMS_ITS | Encounter Summary ---
Author Organization [facility] Address [address] [facility] [address] [place] [address] Care Team Providers Care Cook Taco Name Role Phone Abdias Gama DO Primary Care Provider [phone]- [phone] Encounter Details Date Type Department Care Team (Late st Contact Info) Description 10/02/2016 Orders Only [facility] ProviderJamar MD [address] [place] [id number] Social History Tobacco Use Types Packs/Day Years Used Date Smoking Tobacco: Former Cigarettes Q uit: 05/13/2010 Comments:Smoking History Pac ks/day: 1 Packs Alcohol Use Standard Drinks/Week Comments No 0 (1 standard drink = 0.6 oz pur e alcohol) Sex and Gender Information Value Date Recorded Sex Assigned at Not on file 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 Historical Provider [facility] J[facility] LUIS [facility] Final Result documented in this encounter Visit Diagnoses Not on filedocumented in this encounter Care Teams Cook Taco Relationship Specialty Start Date End Date Abdias Gama DO PCP - General 08/10/16 documented as of this encounter
--- OUTSIDE RECORDS SUMMARY | 2024-08-12 12:14 | XMS_ITS | Referral Summary ---
Author Organization [facility] [place] [address] Address [address] [place] [address] Care Team Providers Care Pest Control Specialist Name Role Phone Abdias Gama DO Primary Care Provider +1- [phone] Allergies No known active allergies Medications metFORMIN [...] a associated with type 2 diabetes mellitus ([facility]) 12/22/2019 Encounter for therapeutic drug monitoring 2017 [...] FIBRILLATION Hyperlipidemia 09/26/2013 06/21/2021 Overview (08/17/2016): Hyperlipidemia Social History Tobacco Use Types Packs/Day Years Used Date Smoking Tobacco: Former Cigarettes Q uit: 02/25/2023 Smokeless Tobacco: Never Tobacco Cessation:Counseling Given: Not Answered Comments:Smoking History Packs/day: 1 Packs Alcohol Use Standard Drinks/Week Comments No 0 (1 standard drink = 0.6 oz pur e alcohol) Sex and Gender Information Value Date Recorded Sex Assigned at Not on file Legal 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 Gender Identity Not on file Sexual Orientation Not on file Last Filed Vital Signs Vital Sign Reading Time Taken Comments Blood Pressure 122/70 03/19/2024 8:18 AM DRYER OPERATOR Pulse 101 03/19/2024 8:18 AM DRYER OPERATOR Temperature - - Respiratory Rate - - Oxygen Saturation 97% 03/19/2024 8:18 AM DRYER OPERATOR Inhaled Oxygen Concentration - - Weight 138.3 kg (305 lb) 03/19/2024 8:18 AM DRYER OPERATOR Height 180.3 cm (5' 11 ) 03/19/2024 8:18 AM DRYER OPERATOR Body Mass Index 42.54 03/19/2024 8:18 AM DRYER OPERATOR Plan of Treatment Not on file Procedures Procedure Name Priority Date/Time Associated Diagnosis [...] Most Recently Relevant to Health Maintenance Insurance [facility] [employer] [facility] CHOICE PLUS [facility] HMO/PPO Address: [facility] [id number] [place], [place] [id number] Care Teams Pest Control Specialist Relationship Specialty Start Date End Date bAdias Gama DO PCP - General 08/10/16
[2024-08-12 13:28] LABS: Alanine Aminotransferase 30 U/L (6-50); Albumin Level 4.5 g/dL (3.5-5.1); Alkaline Phosphatase 58 U/L (38-126); Anion Gap 10 mmol/L (4-12); Aspartate Amino Transferase 59 U/L (17-59); Bilirubin,Total 0.8 mg/dL (0.2-1.3); Blood Urea Nitrogen 12 mg/dL (9-20); Calcium 10.9 mg/dL (8.4-10.2); Carbon Dioxide 27 mmol/L (22-30); Chloride 102 mmol/L (98-107); Estimated Glomerular Filt Rate > 60; Glucose 132 mg/dL (65-110); Potassium 4.9 mmol/L (3.4-5.0); Sodium 139 mmol/L (137-145)
[2024-08-12 13:30] LABS: Basophils Absolute Auto 0.1 K/mm3 (0.0-0.1); Basophils Percent Auto 0.6 % (0.2-1.2); Eosinophils Absolute Auto 0.4 K/mm3 (0-0.3); Eosinophils Percent Auto 4.5 % (0-4.4); Hematocrit 43.1 % (42.0-52.0); Hemoglobin 13.7 g/dL (14.0-18.0); Immature Granulocyte Absolute 0.04 K/mm3 (0.00-0.031); Immature Granulocyte Percent A 0.5 % (0-0.5); Lymphocytes Absolute Auto 2.84 K/mm3 (0.9-3.2); Mean Corpuscular HGB Conc 31.8 g/dl (32-36); Mean Corpuscular Hemoglobin 29.7 pg (26-34); Mean Corpuscular Volume 93.3 fl (80-100); Mean Platelet Volume 11.9 fl (7.4-10.4); Monocytes Absolute Auto 0.6 K/mm3 (0.1-0.6); Monocytes Percent Auto 6.3 % (2.6-8.5); Neutrophils Percent Auto 56.1 % (45.5-73.1); Platelet Count Result 252 k/mm3 (150-375); Red Blood Count 4.62 M/mm3 (4.6-6.20); Red Cell Distribution Width 12.8 % (11.5-14.5); White Blood Count 8.9 K/mm3 (4.5-10.0)
[2024-08-12 16:49] LABS: Hemoglobin A1C 6.6 % (<5.7)
== END 2024-08-12 10:45 | disposition home or self-care (01) ==
LOC: ANHGOSHLAB 10:45
PROVIDERS: PCP Family Medicine; Visit Provider Nurse Practitioner
DX: E11.9 Type 2 diabetes mellitus without complications (principal)
CPT/HCPCS: 36415; 80053; 83036; 85025

== ENCOUNTER 2025-03-19 10:10 | Outpatient (CLI) | payer OTHER, SELFPAY ==
--- OUTSIDE RECORDS SUMMARY | 2025-03-19 10:55 | XMS_ITS | Encounter Summary ---
Author Organization [facility] Address [address] [place] [address] Care Team Providers Care Hvac Technician Name Role Phone Abdias Gama DO Primary Care Provider Encounter Details Date Type Department Care Team (Late st Contact Info) Description 08/12/2024 [place] Only [facility] [place] [address] [place] [id number] Scanning, Provider Social History Tobacco Use Types Packs/Day Years Used Date Smoking Tobacco: Former Cigarettes Q uit: 02/25/2023 Smokeless Tobacco: Never Comments:Smoking History Pac ks/day: 1 Packs Alcohol Use Standard Drinks/Week Comments No 0 (1 standard drink = 0.6 oz pur e alcohol) Sex and Gender Information Value Date Recorded Sex Assigned at Not on file 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
--- OUTSIDE RECORDS SUMMARY | 2025-03-19 10:55 | XMS_ITS | Encounter Summary ---
Author Organization [facility] Address [address] [facility] [address] [place] [address] Care Team Providers Care Boring Mill Operator For Metal Name Role Phone Abdias Gama DO Primary Care Provider Encounter Details Date Type Department Care Team (Late st Contact Info) Description 10/02/2016 Orders Only [facility] ProviderJamar MD [address] [place] [address] Social History Tobacco Use Types Packs/Day Years Used Date Smoking Tobacco: Former Cigarettes Q uit: 05/13/2010 Comments:Smoking History Pac ks/day: 1 Packs Alcohol Use Standard Drinks/Week Comments No 0 (1 standard drink = 0.6 oz pur e alcohol) Sex and Gender Information Value Date Recorded Sex Assigned at Not on file 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
--- OUTSIDE RECORDS SUMMARY | 2025-03-19 10:55 | XMS_ITS | Clinical Summary ---
Author Organization [facility] [place] [address] Address [address] [place] [address] Care Team Providers Care Guest House Manager Name Role Phone Abdias Gama DO Primary Care Provider Allergies No known active allergies Medications metFORMIN (GLUCOPHAGE) 500 mg tablet Take 1 tablet (500 mg total) by mouth 2 (two) times a day with meals Active ERGOCALCIFEROL, VITAMIN D2, ORAL Take 2,000 Units by mouth daily Active Ozempic 2 mg/dose (8 mg/3 mL) pen injector injection Inject 2 mg under the skin 01/22/2024 Active rivaroxaban (Xarelto) 20 mg tablet TAKE 1 TABLET BY MOUTH EVERY EVENING WITH FOOD 90 tablet 3 09/09/2024 Active metoprolol XL (TOPROL-XL) 100 mg 24 hr tablet TAKE 1 TABLET(100 MG) BY MOUTH DAILY 90 tablet 3 12/25/2024 Active atorvastatin (LIPITOR) 40 mg tablet TAKE 1 TABLET(40 MG) BY MOUTH DAILY 90 tablet 3 12/31/2024 Active Active Problems Problem Noted Date Diagnosed Date Other chest pain 06/21/2021 Localized edema 12/14/2020 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 2 diabetes mellitus ([facility]) 12/22/2019 Encounter for therapeutic drug monitoring 2017 Morbid obesity with BMI of 40.0-44.9, adult 12/2016 OZ on CPAP 11/23/2015 Overview (08/17/2016): [...] FIBRILLATION Hyperlipidemia 09/26/2013 06/21/2021 Overview (08/17/2016): Hyperlipidemia Encounters Date Type Department Care Team Description 03/17/2025 10:30 AM FACILITIES LOCATOR Office Visit [facility] [address] [place] [address] Dorota Ojeda NP Longstanding persistent atrial fibrillation (CMS/HCC) (HCC) (Primary Dx); Hypertension associated with diabetes (HCC); Chronic anticoagulation; OZ on CPAP; Mixed diabetic hyperlipidemia associated with type 2 diabetes mellitus (CMS/HCC) (HCC) from Last 3 Months Surgical History Surgery Date Site/Laterality Comments OTHER [...] on file Legal Sex Male 8:53 AM FACILITIES LOCATOR Gender Identity Not on file Sexual Orientation Not on file Last Filed Vital Signs Vital Sign Reading Time Taken Comments Blood Pressure 118/84 03/17/2025 10:06 AM FACILITIES LOCATOR Pulse 64 03/17/2025 10:06 AM FACILITIES LOCATOR Temperature - - Respiratory Rate - - Oxygen Saturation 95% 03/17/2025 10:06 AM FACILITIES LOCATOR Inhaled Oxygen Concentration - - Weight 133.8 kg (295 lb) 03/17/2025 10:06 AM FACILITIES LOCATOR Height 180.3 cm (5' 11) 03/17/2025 10:06 AM FACILITIES LOCATOR Body Mass Index 41.14 03/17/2025 10:06 AM FACILITIES LOCATOR Plan of Treatment Health Maintenance Due Date [...] 1980 Zoster Vaccine (1 of 2) 2011 Covid-19 Vaccine (2024-2 6 season) 2025 04/25/2021, 08/08/2020, 07/18/2020 Influenza Vaccine (#1) 2025 02/20/2023 Lipid Panel 03/17/2026 03/17/2025, 02/10, 01/09/2023, Additional history exists DTaP/Tdap/Td Vaccine (2 - Td or Tdap) 06/12/2028 06/12/2018 Procedures Procedure Name Priority Date/Time Associated Diagnosis Comments POCT LIPID PANEL Routine 03/17/2025 10:0 5 AM FACILITIES LOCATOR Mixed diabetic hyperlipidemia associated with type 2 diabetes mellitus (CMS/HCC) (HCC) from Last 3 Months Results * (ABNORMAL) POCT lipid panel (03/17/2025 10:05 AM FACILITIES LOCATOR) Cholesterol, POC 103 <200 MG/DL HDL, POC 30(A) >=40 mg/dL Triglycerides, POC 151(A) <=149 mg/dL LDL Cholesterol POC 43 <=129 mg/dL Chol/HDL Ratio, POC 1.4 NONE Non-HDL Cholesterol, POC 73 NONE mg/dL Cholesterol Total, POC 103 30 - 199 mg/dL Capillary blood 03/17/2025 1 0:05 AM FACILITIES LOCATOR Dorota Ojeda NP POINT OF CARE TEST ORDERABLE S Final Result from Last [address] [place] [place] [address] [place] [address] [facility] Care Teams Guest House Manager Relationship Specialty Start Date End Date Abdias Gama DO PCP - General 08/10/16
[2025-03-19 12:53] LABS: Hematocrit 42.7 % (42.0-52.0); Hemoglobin 13.7 g/dL (14.0-18.0); Immature Granulocyte Percent A 0.6 % (0-0.5); Lymphocytes Absolute Auto 2.37 K/mm3 (0.9-3.2); Mean Corpuscular HGB Conc 32.1 g/dl (32-36); Mean Corpuscular Hemoglobin 29.5 pg (26-34); Mean Corpuscular Volume 92.0 fl (80-100); Nucleated Red Blood Cells Absolute Auto 0.000 K/mm3 (0.0-0.012); Nucleated Red Blood Cells Perc 0.0 % (0.0-0.2); Platelet Count Result 240 k/mm3 (150-375); Red Blood Count 4.64 M/mm3 (4.6-6.20); White Blood Count 8.6 K/mm3 (4.5-10.0)
[2025-03-19 13:14] LABS: Alanine Aminotransferase 28 U/L (6-50); Albumin Level 4.8 g/dL (3.5-5.1); Alkaline Phosphatase 57 U/L (38-126); Anion Gap 10 mmol/L (4-12); Aspartate Amino Transferase 53 U/L (17-59); Bilirubin,Total 0.9 mg/dL (0.2-1.3); Blood Urea Nitrogen 17 mg/dL (9-20); Calcium 10.8 mg/dL (8.4-10.2); Carbon Dioxide 25 mmol/L (22-30); Chloride 102 mmol/L (98-107); Cholesterol 105 mg/dL (0-200); Estimated Glomerular Filt Rate > 60; Glucose 124 mg/dL (65-110); HDL Direct 33 mg/dL; Potassium 4.5 mmol/L (3.4-5.0); Sodium 137 mmol/L (137-145); Total Protein 7.8 g/dL (6.3-8.2); Triglycerides 145 mg/dL (<150)
[2025-03-19 13:52] LABS: Prostate Specific Antigen 2.4 ng/mL (< OR = 4.0)
[2025-03-19 13:58] LABS: Hemoglobin A1C 6.8 % (<5.7)
== END 2025-03-19 10:11 | disposition home or self-care (01) ==
LOC: ANHGOSHLAB 10:10
PROVIDERS: PCP Internal Medicine; Visit Provider Nurse Practitioner
DX: E11.65 Type 2 diabetes mellitus with hyperglycemia (principal); Z12.5 Encounter for screening for malignant neoplasm of prostate
CPT/HCPCS: 36415; 80053; 80061; 83036; 84153; 85025; G0103